=== PATIENT | male | born 1980 | race Caucasian/White ===

== ENCOUNTER 2022-10-13 11:29 | Day surgery (SDC) | payer BC, SELFPAY ==
[2022-10-13] VITALS (11 sets, daily range): BP systolic 138–156; BP diastolic 80–99; PULSE 51–93; RESP 13–16; TEMP 36.5–37.4; O2SAT 95–98; BMI 26.9
[2022-10-13] MEDS: LACTATED RINGERS 1000 ML 1,000 ML 100 ML IV (11:35)
[2022-10-13] MEDS: SODIUM CHLORIDE 0.9 % (FLUSH) 10 ML SYRINGE IVF (11:54)
--- NOTE | 2022-10-13 12:08 | W.ANESCHARGE ---
Anesthesia Charges Start Date/Time Anesthesia Start Date: 10/13/22 Anesthesia Start Time: 12:58 Stop Date/Time Anesthesia Stop Date: 10/13/22 Anesthesia Stop Time: 15:37
[2022-10-13] MEDS: BUPIVACAINE 0.5 % 10 ML VIAL INJECTION (13:33)
--- NOTE | 2022-10-13 15:36 | W.ANESCHARGE ---
Anesthesia Charges Start Date/Time Anesthesia Start Date: 10/13/22 Anesthesia Start Time: 12:58 Stop Date/Time Anesthesia Stop Date: 10/13/22 Anesthesia Stop Time: 15:37
--- NOTE | 2022-10-13 15:38 | PM.GSPRC ---
Operative Note Date of procedure: 10/13/22 Pre-op diagnosis: 1. Acute cholecystitis. Post-op diagnosis: Same Type of Procedure: 1. Laparoscopic cholecystectomy. Indications: 42-year-old male was seen in emergency room yesterday with right upper quadrant pain that started over 12 hours prior to his presentation. Patient's pain was described as constant. He had multiple episodes of vomiting. In the emergency room he was found to have an elevated WBC of 14. His liver function tests were normal with the exception of mildly elevated AST. His bilirubin was normal. A gallbladder ultrasound was obtained that showed cholelithiasis. The gallbladder wall was 2 mm thick with no pericholecystic fluid. The common bile duct was normal in size. On clinical exam patient had tenderness to palpation in the right upper quadrant with equivocal Beasley sign. Patient had a positive Beasley sign during his ultrasound and on examination of the emergency room doctor. Given patient's clinical information and his physical exam, acute cholecystitis was suspected, and laparoscopic cholecystectomy was recommended. The procedure was discussed in detail. The risks associated procedure including infection, bleeding, injury to intra-abdominal organs, and injury to the common bile duct were all discussed with the patient, and he agreed to proceed. Procedure Description: After discussing the risks and benefits of the procedure, the patient signed informed consent.? The operative site was marked and the patient was brought to the operating room and placed on the operating table in supine position.? Care was taken to pad the patient's pressure points.?? The patient was then intubated by anesthesia.?? The operative site was then prepped and draped in the usual sterile fashion.? A time-out was then performed. A 5-mm laparoscopy port was placed in the left upper quadrant guided by a 5-mm laparoscope placed into a translucent trochar.~ Passage through the layers of the abdominal wall was visualized with the laparoscope.~ A pneumoperitoneum was established. A 0-degree 5-mm laparoscope was advanced into the abdomen. The abdomen was briefly surveyed, and no adhesions were noted. A 10-mm port were placed infraumbilically and two more 5 mm ports were placed on the right under direct visualization by laparoscope. The camera was then changed to 10 mm 30-degree scope and placed into the abdomen through the 10 mm port. The left upper quadrant port entrance was examined and no injury to intra-abdominal organs was identified. The gallbladder was identified, and it was taut. I was not able to grasp the gallbladder. A laparoscopic needle was used and the gallbladder was decompressed. 30 mL of bile were aspirated from the gallbladder. The gallbladder was then grasped and retracted cephalad. The omentum was adherent to the gallbladder laterally and to its infundibulum. Those adhesions were taken down with hook cautery. The infundibulum was grasped and retracted laterally, exposing the peritoneum overlying the triangle of Calot. The cystic artery was prominent and was anterior to the cystic duct. The cystic artery was clearly dissected circumferentially and it appeared to be branching of a larger blood vessels. The larger blood vessel was thought to be the right hepatic artery. The cystic artery was dissected circumferentially and its course into the gallbladder was visualized. The cystic artery was then clipped with 2 5 mm clips on the patient's side and a single clip on the specimen side and divided with scissors to improve visualization of the cystic duct. The cystic duct was clearly identified and was dilated near the infundibulum. The cystic duct was diving towards the right hepatic artery and I elected to avoid dissection deep into the yeni hepaticus and stay close to the infundibulum. When the cystic duct was circumferentially dissected, I was not able to place a 5 mm clip to control the cystic duct. 10 mm clip adaptive physical education specialist was then used and the cystic duct was clipped near the infundibulum. Although the 10 mm clip still did not go all the way across the cystic duct. Two clips were placed on the patient's side and a single clip was placed on the specimen side of the cystic duct near the infundibulum and the cystic duct was then divided with scissors between the clips. Small stones came out from the gallbladder because the cystic duct lumen was not completely closed. The cystic duct stump was then controlled with 0-0 PDS endoloop and 0-0 Vicryl and the loop just proximal to the clips. Additional clips were placed on the gallbladder to avoid further spillage of gallstones. The gallbladder was then dissected of the gallbladder fossa with cautery. Moderate to large amount of edema was noted in the gallbladder wall during this dissection. All gallstones that were spilled previously were collected and removed from the abdomen. The gallbladder fossa was examined and any oozing from the gallbladder fossa was controlled with hook cautery. The gallbladder was lawn and thickened. The gallbladder was placed into the and the catch bag. We enlarged the skin and fascial incision of the infraumbilical incision to accommodate removal of the gallbladder. The gallbladder was removed from the abdomen. The fascia of the infraumbilical incision was then closed with a running 0-0 Vicryl suture. Pneumoperitoneum was completely reduced after viewing removal of the trocars under direct vision. The skin was then closed with 4-0 monocryl and steristrips were applied. Instrument, sponge, and needle counts were correct at closure and at the conclusion of the case. The patient was transferred to PACU in stable condition. Findings: Moderate to large amount of inflammation in the gallbladder wall. Dilated cystic duct near the infundibulum controlled with Endoloops. Anesthesia: GETA Surgeon: Summer Núñez MD Estimated blood loss (mL): 10 Specimen: Gallbladder Condition: stable Disposition: PACU
== END 2022-10-13 16:48 | disposition home or self-care (01) ==
PROVIDERS: Visit Provider Surgery
PROC: 0FT44ZZ Resection of Gallbladder, Percutaneous Endoscopic Approach (ICD-10-PCS; CPT 47562; principal; 2022-10-13 12:00)
DX: K80.12 Calculus of gallbladder with acute and chronic cholecystitis without obstruction (principal)
CPT/HCPCS: 47562; 00790; 88304; J0330; J1100; J1170; J2405; J2704; J2710; J3010; J3490; J7120; S0020

== ENCOUNTER 2023-05-09 10:37 | Inpatient (IN) | payer BC, SELFPAY ==
[2023-05-09 10:41] VITALS: BP 130/83; PULSE 96; RESP 20; TEMP 36.6; O2SAT 96; BMI 26.5
--- NOTE | 2023-05-09 11:02 | CRLHL7_ITS ---
For Patients: As a result of the Century Cures Act, medical imaging exams and procedure reports are released immediately into your electronic medical record. You may view this report before your referring provider. If you have questions, please contact your health care provider. INDICATION: Left lower quadrant pain COMPARISON: None. TECHNIQUE: CT of the abdomen and pelvis after the administration of intravenous contrast. Multiplanar axial, coronal, and sagittal reformats were reconstructed. Contrast: 100 mL Isovue 370 intravenously. Oral contrast was not administered. FINDINGS: Lung bases: Normal. Liver: Normal. No masses. Normal vasculature. Gallbladder and biliary tree: Cholecystectomy. No biliary duct dilation. Pancreas: Normal. Spleen: Very small splenic cyst. No further follow-up recommended. Normal size. Adrenal glands: Normal. No nodules. Kidneys and bladder: Normal size and position. No cyst or mass. No calculi. No urinary tract dilation. The urinary bladder is normal. GI: Focal diverticulitis in the sigmoid colon. There is perforation with a moderate to large amount of focal air adjacent to the sigmoid colon. Air is also dissecting into the mesentery and out into the upper abdomen behind the stomach in around the gastroesophageal junction. There is no free intraperitoneal air. No abscess or discrete collection. Other than the area of diverticulitis, the bowel has a normal appearance. The appendix is normal. There are no dilated segments. Vessels: Aorta and major branches, including the mesenteric vessels: Patent. Normal caliber. No atherosclerotic plaques. IVC and tributaries: Normal. Mesenteric and portal veins: Normal. Peritoneum: No free fluid. Lymph nodes: No adenopathy. Pelvis: Physiologic appearance of the reproductive organs. Bones: No fractures. No focal bone lesions. Pectus excavatum with sternal slope. L5-S1 disc degenerative change. Abdominal wall: Normal. IMPRESSION: Perforated sigmoid diverticulitis. Large amount of air tracking through the mesentery into the upper abdomen. No free air. No drainable abscess or collection. Please note that all CT scans at this facility use dose modulation, iterative reconstruction, and/or weight-based dosing when appropriate to reduce radiation dose to as low as reasonably achievable. Dictated by Ciara Tellez MD @ 05/09/2023 12:09:52 PM (Electronically Signed)
--- NOTE | 2023-05-09 11:05 | ED.GENADULT ---
HPI - General Adult General Chief complaint: Abdominal Pain Stated complaint: Abdominal pain Time Seen by Provider: 05/09/23 10:47 History of Present Illness HPI narrative: 42-year-old male who is generally quite healthy, had his gallbladder removed here few months ago. Reports left lower quadrant pain and tenderness touches abdomen for the last couple of days worse since about 330 last night. No dysuria, frequency, hematuria. No bowel or bladder changes. Patient has had no nausea, no chest pain shortness of breath. Reports that it is tender to touch in his left lateral quadrant says he of feels a little swollen as well. No pain in his testicle area or groin. Related Data Home Medications Medication Instructions Recorded Confirmed No Known Home Medications 05/09/23 05/09/23 Allergies Allergy/AdvReac Type Severity Reaction Status Date / Time No Known Drug Allergies Allergy Verified 05/09/23 10:47 Review of Systems Status of ROS: Reports: 6 or more systems reviewed and unremarkable except as noted in History and below PFSH [facility] Social History Smoking Status: Never smoker Do you use any of these nicotine containing products: None Second hand tobacco smoke exposure: No How often do you have a drink containing alcohol: 2-3 times a week How many standard drinks containing alcohol do you have on a typical day: 3 or 4 How often do you have six or more drinks on one occasion: Less than monthly AUDIT-C Alcohol total score: 5 Non-prescribed substance use: denies use service: No Exam Narrative: Exam Narrative: Objective: Vital signs look within normal limits He is alert or x3 Pulse regular Abdomen bowel sounds normoactive Left lower quadrant shows tenderness to palpation just below and lateral to his umbilicus, no palpable masses or herniations. exam is unremarkable he denies any groin pain Extremities without edema neurologic nonfocal Const: Vital Signs, click to edit/add: Vital Signs - 24 hr 05/09/23 10:41 Temperature 97.9 F Pulse Rate [Right Pulse Oximeter] 96 Respiratory Rate 20 Blood Pressure [Ri ght Upper Arm] 130/83 Pulse Oximetry 96 Oxygen Delivery Me thod Room Air Course Vital Signs Vital signs: Initial Vital Signs Temperature 97.9 F 05/09/23 10:41 Temperature Source Temporal Artery Scan 05/09/23 10:41 Pulse Rate 96 05/09/23 10:41 Pulse Rhythm Regular 05/09/23 10:41 Respiratory Rate 20 05/09/23 10:41 Blood Pressure 130/83 05/09/23 10:41 Blood Pressure Mean 98 05/09/23 10:41 Blood Pressure Position Sitting 05/09/23 10:41 Pulse Oximetry 96 05/09/23 10:41 Oxygen Delivery Method Room Air 05/09/23 10:41 Vital Signs Temperature 97.9 F 05/09/23 10:41 Pulse Rate 96 05/09/23 10:41 Respiratory Rate 20 05/09/23 10:41 Blood Pressure 130/83 05/09/23 10:41 Pulse Oximetry 96 05/09/23 10:41 Oxygen Delivery Method Room Air 05/09/23 10:41 Temperature 97.9 F 05/09/23 10:41 Pulse Rate 96 05/09/23 10:41 Respiratory Rate 20 05/09/23 10:41 Blood Pressure 130/83 05/09/23 10:41 Pulse Oximetry 96 05/09/23 10:41 Oxygen Delivery Method Room Air 05/09/23 10:41 Medications Administered Medications: Discontinued Medications Generic Name Dose Route Start Last Admin Trade Name Freq PRN Reason Stop Dose Admin Sodium Chloride 1,000 mls @ 6,000 mls/hr 05/09/23 11:15 05/09/23 11:20 0.9 % Sodium Chloride 1000 Ml IV 05/09/23 11:24 6,000 mls/hr .Q10M JUSTUS Administration Piperacillin Sod/Tazobactam 100 mls @ 200 mls/hr 05/09/23 12:13 05/09/23 12:30 Sod 4.5 gm/ Sodium Chloride IVPB 05/09/23 12:14 200 mls/hr ONCE ONE Administration Morphine Sulfate 4 mg 05/09/23 11:02 05/09/23 11:15 Morphine 4 Mg/Ml Inj IVP 05/09/23 11:03 4 mg ONCE ONE Administration Medical Decision Making [facility] Narrative Medical decision making narrative: [age] year white male with a history of recent gallbladder surgery several months ago, with left lower quadrant pain, patient does have some tenderness and some rebound tenderness consistent with peritonitis. I think ruling out diverticulitis would be appropriate. I do not detect a hernia but this could be checked in a CT scan in this will be ordered. Will do the CT with IV contrast, will check labs, IV fluid, IV pain medicine. Disposition pending clinical status and findings. Addendum 12:17 p.m.: The patient has an elevated white count about 16,000, he is not tachycardic or febrile. His CT scan does show a perforated sigmoid diverticulitis with air within the mesentery. Dr. Hurst kindly will consult on the patient on the hospital floor, and Dr. Jurado kindly will admit the patient to the hospital for the hospitalist team. Will start IV Zosyn per Dr. Keys's recommendation. Patient family comfortable plan. Lab Data Labs: Lab Results 05/09/23 05/09/23 Range/Units 11:20 11:50 WBC 16.29 H (4.50-11.00) K/uL RBC 5.01 (4.30-5.90) m/uL Hgb 14.4 (13.5-17.5) gm/dL Hct 42.6 (37.0-53.0) % MCV 85 (80-100) fL MCH 29 (26-34) pg MCHC 34 (32-36) gm/dL RDW Coeff of Jennifer 13.1 (11.5-15.5) % Plt Count 259 (140-440) K/uL Neut % (Auto) 83.4 H (42.0-72.0) % Lymph % (Auto) 9.3 L (20-44) % [place] % (Auto) 6.7 (0.0-11.0) % Eos % (Auto) 0.3 (0.0-7.0) % Baso % (Auto) 0.2 (0.0-3.0) % Neut # (Auto) 13.60 H (1.7-7.0) K/uL Lymph # (Auto) 1.50 (0.90-2.90) K/uL [place] # (Auto) 1.10 H (0.00-0.90) K/UL Eos # (Auto) 0.00 (0.00-0.50) K/uL Baso # (Auto) 0.00 (0.00-0.30) K/uL Abs Immat Gran (auto) 0.00 (0.00-0.30) K/uL Imm/Tot Granulo (auto) 0.1 % Sodium 137 (135-149) mmol/L Potassium 4.0 (3.6-5.1) mmol/L Chloride 104 (96-114) mmol/L Carbon Dioxide 24 (20-32) mmol/L Anion Gap 9 (7-15) mEq/L BUN 14 (5-24) mg/dL Creatinine 0.9 (0.5-1.5) mg/dL Estimated Creat Clear 125.19 Estimated GFR 108 ml/min Glucose 112 (60-115) mg/dL Calcium 9.5 (8.4-10.6) mg/dL Total Bilirubin 1.4 (0.1-1.5) mg/dL Direct Bilirubin 0.4 (0.0-0.5) mg/dL AST 52 H (12-35) U/L ALT 42 (4-50) U/L Alkaline Phosphatase 91 (40-150) U/L C-Reactive Protein 17.2 H (0.5-1.0) mg/dL Total Protein 7.7 (6.0-8.3) g/dL Albumin 4.6 (3.3-5.0) g/dL Amylase 74 (18-89) U/L Urine Color [place] A (Yellow) Urine Appearance Clear (Clear) Urine pH 5.5 (5.0-8.5) Ur Specific [place] 1.025 (1.000-1.030) Urine Protein 2+ A (Negative) Urine Glucose (UA) Negative (Negative) Urine Ketones 2+ A (Negative) Urine Blood Trace-intact A (Negative) Urine Nitrite Negative (Negative) Urine Bilirubin 1+ A (Negative) Urine Urobilinogen 0.2 (0.2-1.0) Ur Leukocyte Esterase Negative (Negative) Urine RBC 2-5 A (0-2) Urine WBC 2-5 (0-5) Ur Squamous Epith Cells Few (None-Few) Urine Bacteria Few A (None) Discharge Plan Discharge Clinical Impression: Abdominal pain, acute, left lower quadrant
[2023-05-09] MEDS: MORPHINE 4 MG/ML INJ IVP (11:15)
[2023-05-09] MEDS: 0.9 % SODIUM CHLORIDE 1000 ml 1,000 ML 6000 ML IV (11:20)
[2023-05-09 11:30] LABS: Basophils Percent Auto 0.2 % (0.0-3.0); Eosinophils Percent Auto 0.3 % (0.0-7.0); Hematocrit 42.6 % (37.0-53.0); Hemoglobin* 14.4 gm/dL (13.5-17.5); Immature Granulocytes Pct Auto 0.1 %; Lymphocytes Percent Auto 9.3 % (20-44); Mean Corpuscular HGB Conc 34 gm/dL (32-36); Mean Corpuscular Hemoglobin 29 pg (26-34); Mean Corpuscular Volume 85 fL (80-100); Monocytes Percent Auto 6.7 % (0.0-11.0); Neutrophils Percent Auto 83.4 % (42.0-72.0); Platelet Count* 259 K/uL (140-440); RDW Coefficient of Variation % 13.1 % (11.5-15.5); Red Blood Count 5.01 m/uL (4.30-5.90); White Blood Count* 16.29 K/uL (4.50-11.00)
[2023-05-09 11:36] LABS: Slide Review Reflex No
[2023-05-09 12:12] LABS: Chloride* 104 mmol/L (96-114); Sodium* 137 mmol/L (135-149)
[2023-05-09 12:13] LABS: Albumin* 4.6 g/dL (3.3-5.0)
[2023-05-09 12:15] LABS: Amylase* 74 U/L (18-89); Creatinine* 0.9 mg/dL (0.5-1.5); Est. Creatinine Clearance* 125.19; Estimated Glomerular Filt Rate 108 ml/min
[2023-05-09 12:16] LABS: Anion Gap 9 mEq/L (7-15); Aspartate Amino Transferase* 52 U/L (12-35); Bilirubin Direct* 0.4 mg/dL (0.0-0.5); Bilirubin Total* 1.4 mg/dL (0.1-1.5); Blood Urea Nitrogen* 14 mg/dL (5-24); Calcium* 9.5 mg/dL (8.4-10.6); Carbon Dioxide* 24 mmol/L (20-32); Glucose* 112 mg/dL (60-115); Total Protein* 7.7 g/dL (6.0-8.3)
[2023-05-09 12:17] LABS: Alanine Aminotransferase* 42 U/L (4-50); Alkaline Phosphatase* 91 U/L (40-150)
[2023-05-09 12:23] LABS: Appearance Urine Clear (Clear); Bilirubin Urine 1+ (Negative); Blood Urine Trace-intact (Negative); Color Urine Orange (Yellow); Glucose Urine Negative (Negative); Ketones Urine 2+ (Negative); Leukocyte Esterase Urine Negative (Negative); Nitrite Urine Negative (Negative); Protein Urine 2+ (Negative); Specific Gravity Urine 1.025 (1.000-1.030); Urobilinogen Urine 0.2 (0.2-1.0); pH Urine 5.5 (5.0-8.5)
[2023-05-09] MEDS: PIPERACILLIN/TAZOBACTAM 4.5 GM in 0.9 % SODIUM CHLORIDE Mini-bag 100 ML IVPB (12:30)
[2023-05-09 12:31] LABS: C Reactive Protein* 17.2 mg/dL (0.5-1.0)
[2023-05-09 12:34] LABS: Bacteria Urine Few; Squamous Epithelial Cell Urine Few (None-Few)
--- NOTE | 2023-05-09 12:57 | ED.NURSE ---
Pt report given to aretha HOLT
--- NOTE | 2023-05-09 13:23 | P.GSCN_ITS ---
History of Present Illness Consult details Date Seen: 05/09/23 Consult date: 05/09/23 Narrative: The patient is a 42-year-old male who presented to the emergency department today with abdominal pain. He states that at 4:00 a.m. yesterday morning he woke up with left lower quadrant pain. He states that it felt like it was radiating down to his groin. He thought that perhaps it was a hernia because he had been lifting weights a prior days. He states that throughout the day his pain waxed and waned. Advil 200 mg took the pain away completely. He also used Tums to help manage. He states that the pain became slightly worse and that made him come in to be seen. He states that it is worse with movement, particularly getting in and out of the chair. It feels better if he presses on it. He states that Advil will completely take the pain away. His last bowel movement was Wednesday he was going to do a water fast over the weekend but when he developed the pain he stopped doing that. He did eat yesterday. He has had no nausea. He has not had a bowel movement since Wednesday. He states he has bowel movements every other day. They are varied in consistency. He does not take fiber. He has no family history of colon cancer. He has never had a colon oscopy. He has never had anything like this previously. [facility] Surgical History (Updated 05/09/23 @ 13:25 by Paige Callahan MD) S/P cholecystectomy ?Z90.49 - Acquired absence of other specified parts of digestive tract (ICD- 10) Social History (Updated 05/09/23 @ 13:26 by Paige Callahan MD) Narrative: He works for a [employer]. He works a desk job. He does not smoke. He drinks alcohol 3 to 4 times a week Smoking Status: Never smoker Do you use any of these nicotine containing products: None Second hand tobacco smoke exposure: No How often do you have a drink containing alcohol: 2-3 times a week How many standard drinks containing alcohol do you have on a typical day: 3 or 4 How often do you have six or more drinks on one occasion: Less than monthly AUDIT-C Alcohol total score: 5 Non-prescribed substance use: denies use service: No Meds Home Medications and Allergies Home Medications Medication Instructions Recorded Confirmed Type No Known Home Medications 05/09/23 05/09/23 History Allergies Allergy/AdvReac Type Severity Reaction Status Date / Time No Known Drug Allergies Allergy Verified 05/09/23 10:47 Exam Narrative: Exam Narrative: General appearance: Alert, cooperative, and in no distress Eyes: PERRLA, eye lids clear, and sclera white HENT Head: Normocephalic Ears: External ears normal Pulmonary: Clear to auscultation bilaterally Cardiovascular Heart: Regular rate and rhythm Extremities: warm and well perfused Gastrointestinal Abdominal: No obvious scars. Patient is nontender to palpation in the upper abdomen and on the right. In the left lower quadrant. He does have mild tenderness to palpation. He endorses mild rebound, however does not appear to have significant pain on exam. Musculoskeletal: Extremities: Upper: Both upper extremities have normal joint range of motion and intact strength. Lower: Both lower extremities have normal joint range of motion and intact strength. Skin: Normal skin color, texture, and turgor. Neurologic: No focal deficits Psychiatric: Alert, oriented, cooperative, normal affect. Const: Vital Signs, click to edit/add: Vital Signs - 24 hr 05/09/23 10:41 Temperature 97.9 F Pulse Rate [Right Pulse Oximeter] 96 Respiratory Rate 20 Blood Pressure [Ri ght Upper Arm] 130/83 Pulse Oximetry 96 Oxygen Delivery Me thod Room Air Results Labs Labs: Abnormal lab results 05/09/23 05/09/23 Range/Units 11:20 11:50 WBC 16.29 H (4.50-11.00) K/uL Neut % (Auto) 83.4 H (42.0-72.0) % Lymph % (Auto) 9.3 L (20-44) % Neut # (Auto) 13.60 H (1.7-7.0) K/uL [place] # (Auto) 1.10 H (0.00-0.90) K/UL AST 52 H (12-35) U/L C-Reactive Protein 17.2 H (0.5-1.0) mg/dL Urine Color [place] A (Yellow) Urine Protein 2+ A (Negative) Urine Ketones 2+ A (Negative) Urine Blood Trace-intact A (Negative) Urine Bilirubin 1+ A (Negative) Urine RBC 2-5 A (0-2) Urine Bacteria Few A (None) Diabetes panel 05/09/23 Range/Units 11:20 Sodium 137 (135-149) mmol/L Potassium 4.0 (3.6-5.1) mmol/L Chloride 104 (96-114) mmol/L Carbon Dioxide 24 (20-32) mmol/L BUN 14 (5-24) mg/dL Creatinine 0.9 (0.5-1.5) mg/dL Glucose 112 (60-115) mg/dL Calcium 9.5 (8.4-10.6) mg/dL AST 52 H (12-35) U/L ALT 42 (4-50) U/L Alkaline Phosphatase 91 (40-150) U/L Total Protein 7.7 (6.0-8.3) g/dL Albumin 4.6 (3.3-5.0) g/dL Calcium panel 05/09/23 Range/Units 11:20 Calcium 9.5 (8.4-10.6) mg/dL Albumin 4.6 (3.3-5.0) g/dL Pituitary panel 05/09/23 Range/Units 11:20 Sodium 137 (135-149) mmol/L Potassium 4.0 (3.6-5.1) mmol/L Chloride 104 (96-114) mmol/L Carbon Dioxide 24 (20-32) mmol/L BUN 14 (5-24) mg/dL Creatinine 0.9 (0.5-1.5) mg/dL Glucose 112 (60-115) mg/dL Calcium 9.5 (8.4-10.6) mg/dL Adrenal panel 05/09/23 Range/Units 11:20 Sodium 137 (135-149) mmol/L Potassium 4.0 (3.6-5.1) mmol/L Chloride 104 (96-114) mmol/L Carbon Dioxide 24 (20-32) mmol/L BUN 14 (5-24) mg/dL Creatinine 0.9 (0.5-1.5) mg/dL Glucose 112 (60-115) mg/dL Calcium 9.5 (8.4-10.6) mg/dL Total Bilirubin 1.4 (0.1-1.5) mg/dL AST 52 H (12-35) U/L ALT 42 (4-50) U/L Alkaline Phosphatase 91 (40-150) U/L Total Protein 7.7 (6.0-8.3) g/dL Albumin 4.6 (3.3-5.0) g/dL All other labs normal. Imaging Abdomen CT scan report/results: report reviewed and image reviewed Additional studies: CT scan of the abdomen pelvis done today IMPRESSION: Perforated sigmoid diverticulitis. Large amount of air tracking through the mesentery into the upper abdomen. No free air. No drainable abscess or collection. Please note that all CT scans at this facility use dose modulation, iterative reconstruction, and/or weight-based dosing when appropriate to reduce radiation dose to as low as reasonably achievable. Dictated by Ciara Tellez MD @ 05/09/2023 12:09:52 PM Assessment and Plan Assessment and plan (1) Diverticulitis of colon with perforation: Status: Acute Plan The patient is a 42-year-old male with perforated diverticulitis. His CT scan is very remarkable and shows a concerning amount of air, mainly around the sigmoid colon. Based on the pattern (although much of it seems very anterior which is curious) and the patient's fairly unremarkable exam, it does seem to be contained within the pericolonic fat. I had a long discussion with the patient and his about the management of diverticulitis. I told him that the amount of air on his CT scan is concerning; however this does not match his clinical exam. He seems to have minimal pain and has only been taking ibuprofen which has adequately controlled his pain. He is not tachycardic, nor is he febrile. It is possible that if this is indeed a contained perforation and remains so, he could potentially resolve on IV antibiotics and bowel rest. We discussed indications for emergent operation, namely free air resulting in fever, tachycardia and worsening pain. We discussed that this would most likely result in the need for a temporary stoma, either colostomy or ileostomy depending on findings. We discussed that if he avoids surgery this hospitalization, there is still a risk he could develop abscess. Therefore we would continue him on IV antibiotics as an outpatient if he improves clinically. We discussed colonoscopy in 6 weeks and elective colon resection. I have discussed and examined the patient with the hospitalist, Dr. Jurado, who will follow the patient this evening. I have also discussed with nursing staff that if he begins developing fevers, tachycardia or is requiring pain meds, then they should notify me immediately. In the meantime, the patient will be in bowel rest, NPO, IV fluids and antibiotics.
[2023-05-09] MEDS: LACTATED RINGERS 500 ML 500 ML IV (13:50)
--- NOTE | 2023-05-09 14:00 | P.IMHP_ITS ---
Hospitalist- H&P: HPI History of Present Illness Date Seen: 05/09/23 Chief complaint: Abdominal pain Narrative: Pancho Cosby is a 42 year old healthy male admitted through the emergency department with progressive left lower quadrant abdominal pain for 1 and half days. Acutely worse about 3:30 a.m. yesterday. Prior to the onset of this pain he was well. He has not had a bowel movement in the last couple days. No urinary problems. He has had no fever. No vomiting. 10/13/2022 he had an uncomplicated laparoscopic cholecystectomy. No gastrointestinal problems or abdominal pain since that time until yesterday. No problems with anesthesia or other surgical complications. Review of Systems Narrative: Patient reports feeling well other than his abdominal pain. [facility] Medical History (Updated 05/09/23 @ 14:13 by Vini Jurado MD) Seasonal allergies ?J30.2 - Other seasonal allergic rhinitis (ICD-10) Surgical History S/P cholecystectomy ?Z90.49 - Acquired absence of other specified parts of digestive tract (ICD- 10) Social History (Updated 05/09/23 @ 14:10 by Vini Jurado MD) Narrative: Lives in [place]. with 2 kids ages 9 and 11. He works for a [employer] company. He works a desk job. He does not smoke. He drinks alcohol 3 to 4 times a week. No recreational drug use Smoking Status: Never smoker Do you use any of these nicotine containing products: None Second hand tobacco smoke exposure: No How often do you have a drink containing alcohol: 2-3 times a week How many standard drinks containing alcohol do you have on a typical day: 3 or 4 How often do you have six or more drinks on one occasion: Less than monthly AUDIT-C Alcohol total score: 5 Non-prescribed substance use: denies use service: No Meds Home Medications and Allergies Home Medications Medication Instructions Recorded Confirmed Type No Known Home Medications 05/09/23 05/09/23 History Allergies Allergy/AdvReac Type Severity Reaction Status Date / Time No Known Drug Allergies Allergy Verified 05/09/23 10:47 Exam Narrative: Exam Narrative: He is alert and appears in no distress. He gives his own history. Eyes normal. Oropharynx normal. Neck is supple without mass or adenopathy. Respirations are clear to auscultation. Cardiovascular: S1, S2, regular rate and rhythm. No murmur gallop or rub. Abdomen: Bowel sounds active. Abdomen is soft with lower abdominal tenderness. No peritonitis. No mass. External genitalia normal. Extremities normal. Good pulses. No edema. No rash. Const: Vital Signs, click to edit/add: Vital Signs - 24 hr 05/09/23 10:41 Temperature 97.9 F Pulse Rate [Right Pulse Oximeter] 96 Respiratory Rate 20 Blood Pressure [Ri ght Upper Arm] 130/83 Pulse Oximetry 96 Oxygen Delivery Me thod Room Air Documenting provider has reviewed patient's vital signs: yes Hospitalist - H&P: Result Labs Labs: Short CBC 05/09/23 Range/Units 11:20 WBC 16.29 H (4.50-11.00) K/uL Hgb 14.4 (13.5-17.5) gm/dL Hct 42.6 (37.0-53.0) % Plt Count 259 (140-440) K/uL BMP 05/09/23 11:20 Sodium 137 Potassium 4.0 Chloride 104 Carbon Dioxide 24 BUN 14 Creatinine 0.9 Glucose 112 Calcium 9.5 Liver Function 05/09/23 Range/Units 11:20 Total Bilirubin 1.4 (0.1-1.5) mg/dL Direct Bilirubin 0.4 (0.0-0.5) mg/dL AST 52 H (12-35) U/L ALT 42 (4-50) U/L Alkaline Phosphatase 91 (40-150) U/L Albumin 4.6 (3.3-5.0) g/dL Urine 05/09/23 Range/Units 11:50 Urine Color [place] A (Yellow) Urine Appearance Clear (Clear) Urine pH 5.5 (5.0-8.5) Ur Specific [place] 1.025 (1.000-1.030) Urine Protein 2+ A (Negative) Urine Glucose (UA) Negative (Negative) Imaging CT scan - abdomen: Radiologist's impression: INDICATION: Left lower quadrant pain COMPARISON: None. TECHNIQUE: CT of the abdomen and pelvis after the administration of intravenous contrast. Multiplanar axial, coronal, and sagittal reformats were reconstructed. Contrast: 100 mL Isovue 370 intravenously. Oral contrast was not administered. FINDINGS: Lung bases: Normal. Liver: Normal. No masses. Normal vasculature. Gallbladder and biliary tree: Cholecystectomy. No biliary duct dilation. Pancreas: Normal. Spleen: Very small splenic cyst. No further follow-up recommended. Normal size. Adrenal glands: Normal. No nodules. Kidneys and bladder: Normal size and position. No cyst or mass. No calculi. No urinary tract dilation. The urinary bladder is normal. GI: Focal diverticulitis in the sigmoid colon. There is perforation with a moderate to large amount of focal air adjacent to the sigmoid colon. Air is also dissecting into the mesentery and out into the upper abdomen behind the stomach in around the gastroesophageal junction. There is no free intraperitoneal air. No abscess or discrete collection. Other than the area of diverticulitis, the bowel has a normal appearance. The appendix is normal. There are no dilated segments. Vessels: Aorta and major branches, including the mesenteric vessels: Patent. Normal caliber. No atherosclerotic plaques. IVC and tributaries: Normal. Mesenteric and portal veins: Normal. Peritoneum: No free fluid. Lymph nodes: No adenopathy. Pelvis: Physiologic appearance of the reproductive organs. Bones: No fractures. No focal bone lesions. Pectus excavatum with sternal slope. L5-S1 disc degenerative change. Abdominal wall: Normal. IMPRESSION: Perforated sigmoid diverticulitis. Large amount of air tracking through the mesentery into the upper abdomen. No free air. No drainable abscess or collection. Assessment and Plan Assessment and plan (1) Diverticulitis of colon with perforation: Problem comment: Consult with General surgery. If clinical deterioration will need surgery. Initial treatment will be IV Zosyn, IV fluids and pain medication. Status: Acute Plan Admit to the hospital for IV antibiotics, serial exams and monitoring, possible surgery. Total time spent today is 60 minutes in coordination of care and discussing with patient, and surgery a plan of care
[2023-05-09 14:20] VITALS: BP 144/90; PULSE 94; RESP 16; TEMP 37.1; O2SAT 96; BMI 26.5
[2023-05-09] MEDS: LACTATED RINGERS 1000 ML 1,000 ML 150 ML IV ×2 (15:14→21:51)
[2023-05-09 16:19] VITALS: BP 129/83; PULSE 85; RESP 16; TEMP 37.1; O2SAT 98
[2023-05-09] MEDS: MORPHINE 2 MG/ML inj IVP ×2 (17:20→21:52)
[2023-05-09] MEDS: PIPERACILLIN/TAZOBACTAM 3.375 GM in 0.9 % SODIUM CHLORIDE Mini-bag 100 ML IVPB (18:33)
--- NOTE | 2023-05-09 18:57 | PC.NURSE ---
Shift Summary 15-19: Patient pleasant and cooperative. Up independently in room. Vitals stable and WNL. Pain at worst 5/10, managed with PRN medication, see MAR. After medication patient rated pain 1-2/10.
[2023-05-09 19:00] VITALS: BP 150/79; PULSE 96; RESP 16; TEMP 37.1; O2SAT 98
[2023-05-09] MEDS: SODIUM CHLORIDE 0.9 % (FLUSH) 10 ML SYRINGE 5 ML IVF (21:52)
[2023-05-09] MEDS: MELATONIN 3 MG TABLET PO (22:37)
[2023-05-09 22:54] VITALS: PULSE 96; RESP 16
[2023-05-09 23:00] VITALS: BP 131/70; PULSE 103; RESP 16; TEMP 37.3; O2SAT 96
[2023-05-10] VITALS (27 sets, daily range): BP systolic 141–171; BP diastolic 83–101; PULSE 96–119; RESP 14–20; TEMP 37–38.5; O2SAT 92–98
[2023-05-10] MEDS: PIPERACILLIN/TAZOBACTAM 3.375 GM in 0.9 % SODIUM CHLORIDE Mini-bag 100 ML IVPB ×2 (00:22→18:59)
--- NOTE | 2023-05-10 02:58 | PM.EN ---
Chart Event Note Time Seen by Provider: 02:00 Date Seen: 05/10/23 Chart Event Note: Called by RN that 1:00 a.m. vitals showed heart rate of 105, temperature 100.9?. I came to see the patient. I explained that he is exhibiting signs of sepsis, therefore I recommend that we proceed to the OR, again given the amount of air on his CT scan. He was hesitant, saying that his temperature was elevated only because he was covered in blankets and that his heart rate is elevated because he is now anxious about having surgery. I did recheck his temperature per his request. Remains 100.0. His pulse was 124. I explained to him that I did not think waiting any longer to make the decision about the OR was prudent as he has gotten 3 doses of antibiotics, has received IV pain medicine and has only worsened clinically. I think he will likely continue to worsen given again the amount of air on his CT scan. I recommend exploration and sigmoidectomy. I spoke to the patient and his . We discussed risks of surgery including bleeding, infection, injury to other structures. He understands that he will have a stoma which will be considered temporary, the timing of takedown depending on the type of stoma and intraoperative findings. We also discussed his postoperative recovery. He would like to wait until his arrives in 20 minutes before proceeding to the OR. I think this is reasonable. Otherwise we are planning on proceeding to the OR emergently this morning.
[2023-05-10] MEDS: LACTATED RINGERS 1000 ML 1,000 ML 150 ML IV ×2 (05:05→06:20)
--- NOTE | 2023-05-10 05:54 | PC.NURSE ---
End of shift [id number]: Pt A&O x4 and ambulates independently in his room. PIV in right AC infusing LR @ 150 mL/hr. IV zosyn given q6H per JUL. Pt tolerating PO ice chips without nausea. LLQ tenderness with change of position but gets relief with applying pressure. Pt rates his pain 3/10 and receives PRN IV 4mg morphine with adequate relief. Pt has been NPO with ice chips. Denies any dizziness or lightheadedness. Pt was VSS and afebrile beginning of shift but he became more tachycardic and febrile as the night went on. At 2300 VS; HR was 103 and PO temp 99.1. Strategic Accounts Manager re-checked again @ 0000 and HR up to [address] Callahan was contacted per MD orders and it was decided to bring patient into the OR for emergency sigmoid colon resection. Pt off unit to OR @ 0310. , Genia located in patient room. ?
--- NOTE | 2023-05-10 06:58 | W.PM.NB ---
Nerve Block Nerve Block Type of block requested by surgeon for post-operative analgesia: TAP Side: bilateral Time out performed: Yes Verification of patient name: Yes Verification of date of : Yes Site marking: site marked Name of person performing procedure: Panda Eckert Continuous monitoring Was continuous monitoring of O2 sat, B/P, monitoring and evaluation advisor, recorded every 15 minutes?: Yes Procedure Checklist: sterile prep, needles and gloves Ultrasound guided. Images saved: Yes Medications given in 5ml increments after negative aspiration: Marcaine %: 0.25 mL: 30 Needle gauge: 20 and Exparel mL: 10 Needle gauge: 20 Patient tolerated procedure well: Yes
--- NOTE | 2023-05-10 07:18 | SUR.OPER ---
Called placed to [facility], , update given, closing in progress. Dr. Callahan to call when complete.
--- NOTE | 2023-05-10 08:34 | P.GSOP_ITS ---
Operative Note Date of procedure: 05/10/23 Pre-op diagnosis: Perforated sigmoid diverticulitis Post-op diagnosis: Perforated sigmoid diverticulitis with peritonitis Type of Procedure: 1. Sigmoidectomy with primary anastomosis 2. Complete Mobilization of the splenic flexure 3. Rigid proctoscopy 4. Diverting loop ileostomy Indications: The patient is a 42-year-old male who presented to the emergency department with left lower quadrant pain. Workup showed perforation of diverticulitis in the proximal sigmoid. He had a large amount of air which appeared to be tracking retroperitoneally and possibly contained within the pericolonic tissue. He had an elevated white blood cell count, however he was not tachycardic, nor was he febrile. On exam, he had minimal pain to palpation. Given this clinical picture, it was felt that possibly the air was contained within the pericolic fat and not freely perforated into the abdomen. I explained to the patient that I was concerned about the amount of air noted, however if he continued to have minimal pain, and was not tachycardic or febrile, we could try observation with IV antibiotics and bowel rest. However the plan was if anything changed then we would proceed to the OR for emergency laparotomy. The patient had been doing well all evening, however around 1:00 a.m. he developed a fever to 100.7. He was noted to also be tachycardic from 105-125. He did not feel that his pain had worsened, however given these findings in light of his CT scan, I recommended proceeding to the OR emergently. Procedure Description: After discussing the risks and benefits of the procedure, the patient signed informed consent.? The operative site was marked and the patient was brought to the operating room and placed on the operating table in supine position.? Care was taken to pad the patient's pressure points.?? The patient was then in tubated by anesthesia.?Anesthesia then performed a tap block. Please see their note for details. SCDs and a Goncalves were placed. The patient was then placed in lithotomy position. The abdomen was then prepped and draped in the usual sterile fashion. A time-out was then performed. I began by making an incision in the midline from just above the umbilicus to the lower abdomen. Dissection was taken down to the subcutaneous fat using cautery. The fascia was incised followed by the peritoneum. The peritoneal cavity was then entered. The fascia was then divided along the length of the incision. An Sachin wound protector was brought into the field and placed into the wound. An Omni retractor was then brought in and used to provide retraction. I 1st began by examining the abdomen. There was an inflammatory mass of the left lower quadrant. There appeared to be small bowel adherent to this with fibrinous exudate. There was purulent material noted in the pelvis. There was small bowel which was adherent to the sigmoid colon and inflammatory mass in the left upper pelvis. This was bluntly dissected using finger dissection. The perforation in the sigmoid was noted here just under the small bowel. I began by incising the lateral pelvic peritoneal reflection of the sigmoid colon. This was done with cautery. The area of perforation in inflammation was noted to be in the proximal sigmoid/distal descending colon. There was a large amount of edema in the lateral mesentery of the sigmoid. The ureter was identified as I reflected the sigmoid medially. Care was taken to avoid this. I took this dissection as far cranially as possible, mobilizing the descending colon laterally. Once I had mobilized the lateral colon as far as I could reach, I turned my attention back down to the inflammatory mass. Now that it was mobilized, I elected to divide the colon proximally. Using cautery, I dissected away the pericolonic fat. A mesenteric window was created and through this I passed a blue load ARNIE stapler. The distal descending colon was divided just proximal to the area perforation I then divided the mesentery using LigaSure. This was taken down to the rectum. Small bleeding vessels were oversewn with stick ties resulting in excellent hemostasis. As the division of the mesentery was done, the ureter was in view and was avoided. Once I reach the mesenteric fat at the rectum, I dissected the blood vessels in the mesentery with a right angle and divided these with silk ties. Once the superior rectum was cleared, I used a contour stapler to divide the rectum. The staple line was inspected for bleeding. There was a small area of bleeding on the lateral aspect. This was oversewn with 3-0 silk. The specimen was then marked with a stitch proximally and sent to pathology. I then examined the distal end of the colon. This did not extend into the pelvis. Therefore, I extended my incision superiorly for approximately 3 cm. The retractors were replaced and this allowed me to mobilize further descending colon. However, this disease and not allow visualization removed was a she the splenic flexure. I extended the incision for another 3 cm, and was able to then take down the splenic flexure entirely, using a combination of LigaSure as well as cautery. At 1 point the cautery was close to the wall of the descending colon in a focal area. There was no obvious burn jaylyn, however I did over-sew this with 3-0 silk suture in Lembert fashion. Once this was done the distal colon was examined. It was still somewhat tethered laterally to the retroperitoneum. These filmy adhesions were taken down with cautery. I then divided the mesentery distally near the root which provided excellent mobilization of the distal colon. This fell easily now over the pelvic brim. The colon appeared well perfused. I now began my anastomosis. Using cautery, I removed the fat at the distal end of the colon. I then removed the staple line using a knife. A 31 EEA stapler anvil was obtained and placed into the open end of the colon. A 2-0 Prolene suture was then used to create a pursestring. This was snugged up around the anvil. I then cleared a small area of fat off of the distal colon, and placed a 2nd 2 0 Vicryl pursestring suture. At this point the pursestring was snugged nicely around the anvil. I placed this back down in the pelvis. I then performed a proctoscopy. The patient did have a small amount of firm stool in the rectum. This was extracted digitally. I was able to use sizers and passed them easily to the rectal stump. Once this was done I passed the stapler of the 31 mm EEA stapler until it reached the staple line. The trocar was deployed through the staple line in the center. I did this by placing a sterile glove and sleeve on my left hand to help guide the stapler in the appropriate location. Once this was done my talent assistant placed the anvil onto the trocar. I then closed the stapler. After waiting 30 seconds, I fired the stapler, creating the anastomosis. The stapler was then removed. Two anastomotic rings were removed intact. I then performed a proctoscopy. There was no bleeding noted from the staple line. The staple line appeared to be at approximately 18 cm. I then performed a leak test. This was negative. Once this was done, I then scrubbed back into the case and examined the abdomen. Hemostasis appeared excellent. I irrigated the abdomen with 1 L of warm saline. There was no significant purulence other than what had initially been found suctioned out of the pelvis. I did place a piece of Surgicel in the left upper quadrant over a raw area of the retroperitoneum - after cauterizing a small vessel that was bleeding. Once this was done, I rechecked the anastomosis. The proximal colon fell easily into the pelvis without tension. The mesentery was without bleeding. I then identified a healthy piece of ileum approximately 30 cm proximal to the ileocecal valve. This came up very easily to the abdominal wall. I then created a stoma trephine just below the umbilicus on the right. This was done with cautery, incising the skin and then dividing the subcutaneous fat. The anterior rectus fascia was incised in a cruciate manner. The rectus muscle fibers were spread and the posterior fascia was then incised as well. I was able to pass 2 fingers through and through this I was able to deliver the loop of ileum, with care to ensure it was not twisted. Once this was done, the fascia was closed with looped 0 Maxon suture in a running fashion. I then closed the skin around the umbilicus with 3-0 Vicryl dermal and 4-0 Monocryl running subcuticular suture, to better facilitate pouching of the stoma. I left the inferior and superior aspect of the wound open to heal by secondary intention. Sterile dressings were then applied and attention was turned to stoma maturation. A transverse incision was made on the ileum using cautery. Then using 3-0 Vicryl, I matured the ileostomy in a Elham fashion. I placed additional sutures to create the mucocutaneous anastomosis circumferentially. Once this was done I was able to pass my finger easily through the fascia. A stoma appliance was then placed. ? The patient was then woken and transported to the recovery area in stable condition. ? The patient tolerated the procedure well. Findings: 1. Perforated proximal sigmoid diverticulitis with a large amount of mesenteric edema and purulent fluid in the pelvis 2. End-to-end colorectal anastomosis created at 18 cm. Negative leak test, anastomotic rings intact. Anesthesia: GETA Surgeon: Paige Callahan MD Estimated blood loss (mL): 50 Additional Specimen Information: 1. Sigmoid colon, stitch proximal, with additional proximal margin and anastomotic rings Condition: stable Disposition: PACU
--- NOTE | 2023-05-10 08:49 | W.ANESCHARGE ---
Anesthesia Charges Start Date/Time Anesthesia Start Date: 05/10/23 Anesthesia Start Time: 03:11 Stop Date/Time Anesthesia Stop Date: 05/10/23 Anesthesia Stop Time: 08:43 Summary Emergency: ELECTROCARDIOGRAPHIC TECHNICIAN
[2023-05-10] MEDS: fentaNYL 100 MCG/2 ML inj 50 MCG IVP ×2 (09:00→09:10)
[2023-05-10] MEDS: HYDROmorphone 0.5 mg/0.5 ml inj IVP ×4 (09:55→20:13)
[2023-05-10 10:04] LABS: Basophils Percent Auto 0.1 % (0.0-3.0); Hematocrit 41.2 % (37.0-53.0); Hemoglobin* 13.7 gm/dL (13.5-17.5); Immature Granulocytes Pct Auto 0.1 %; Lymphocytes Percent Auto 3.2 % (20-44); Mean Corpuscular HGB Conc 33 gm/dL (32-36); Mean Corpuscular Hemoglobin 29 pg (26-34); Mean Corpuscular Volume 86 fL (80-100); Neutrophils Percent Auto 90.6 % (42.0-72.0); Platelet Count* 281 K/uL (140-440); RDW Coefficient of Variation % 13.2 % (11.5-15.5); Red Blood Count 4.77 m/uL (4.30-5.90); White Blood Count* 16.79 K/uL (4.50-11.00)
[2023-05-10 10:05] LABS: Slide Review Reflex No
[2023-05-10] MEDS: LACTATED RINGERS 1000 ML 1,000 ML 125 ML IV ×2 (10:05→19:01)
[2023-05-10 10:17] LABS: Chloride* 107 mmol/L (96-114)
[2023-05-10 10:18] LABS: Potassium* 4.3 mmol/L (3.6-5.1); Sodium* 135 mmol/L (135-149)
[2023-05-10 10:20] LABS: Creatinine* 0.8 mg/dL (0.5-1.5); Est. Creatinine Clearance* 140.83; Estimated Glomerular Filt Rate 112 ml/min
[2023-05-10 10:21] LABS: Anion Gap 13 mEq/L (7-15); Blood Urea Nitrogen* 13 mg/dL (5-24); Calcium* 8.2 mg/dL (8.4-10.6); Carbon Dioxide* 15 mmol/L (20-32); Glucose* 142 mg/dL (60-115)
[2023-05-10 10:38] LABS: C Reactive Protein* 16.6 mg/dL (0.5-1.0)
--- NOTE | 2023-05-10 10:47 | PM.IMPN1 ---
Progress Note: A&P Assessment and plan (1) Diverticulitis of colon with perforation: Problem details: Partial colectomy morning for sepsis secondary to perforated diverticulitis. Colostomy in place. Continue IV Zosyn, IV fluids, clear liquid diet. Status: Acute (2) Sepsis: Problem details: Secondary to diverticulitis, now improving after surgical removal of affected part of colon. Status: Acute Subjective Time Seen by Provider: 10:35 Date Seen: 05/10/23 Interval history: Pancho is still sleepy after surgery. His is in the room with him. Pancho states he is having some pain, but mostly just wants to sleep. Exam Narrative: Exam Narrative: General: [No acute distress.] Sleeping, arousable, oriented. [No pallor.] [No jaundice.] Oropharynx: Clear. Mucous membranes [moist]. Cardiovascular: [Regular rate and rhythm]. [No murmurs, gallops, or rubs]. Respiratory: [Clear to auscultation bilaterally. No wheezes or crackles]. Abdomen: Freshly surgical abdomen with a colostomy in place, ostomy is pink and viable. Bandages are clean, dry, and intact. Extremities: [No] pedal edema. Const: Vital Signs, click to edit/add: Vital Signs - 24 hr 05/09/23 14:20 05/09/23 16:19 05/09/23 19:00 Temperature 98.8 F 98.7 F 98.7 F Pulse Rate Pulse Rate [Apical ] 94 85 Pulse Rate [Pulse Oximeter] 96 Respiratory Rate 16 16 16 Blood Pressure Blood Pressure [Ri t Arm] 144/90 H 129/83 150/79 H Pulse Oximetry 96 98 98 Oxygen Delivery Me thod Room Air Room Air Room Air Oxygen Flow Rate 05/09/23 22:54 05/09/23 23:00 05/10/23 01:14 Temperature 99.1 F 100.9 F H Pulse Rate Pulse Rate [Apical ] Pulse Rate [Pulse Oximeter] 96 103 H 105 H Respiratory Rate 16 16 Blood Pressure Blood Pressure [Ri ght Arm] 131/70 Pulse Oximetry 96 Oxygen Delivery Me thod Room Air Oxygen Flow Rate 05/10/23 08:45 05/10/23 08:50 05/10/23 08:55 Temperature 99 F Pulse Rate 108 H 105 H 108 H Pulse Rate [Apical ] Pulse Rate [Pulse Oximeter] Respiratory Rate 14 14 14 Blood Pressure 148/91 H 146/88 H 147/88 H Blood Pressure [Ri ght Arm] Pulse Oximetry 94 94 94 Oxygen Delivery Me thod Room Air Room Air Room Air Oxygen Flow Rate 05/10/23 09:00 05/10/23 09:05 05/10/23 09:10 Temperature Pulse Rate 100 100 101 H Pulse Rate [Apical ] Pulse Rate [Pulse Oximeter] Respiratory Rate 14 14 14 Blood Pressure 147/90 H 144/91 H 146/89 H Blood Pressure [Ri ght Arm] Pulse Oximetry 92 97 96 Oxygen Delivery Me thod Room Air Nasal Cannula Nasal Cannula Oxygen Flow Rate 3 3 05/10/23 09:15 05/10/23 09:20 Temperature 98.6 F Pulse Rate 98 98 Pulse Rate [Apical ] Pulse Rate [Pulse Oximeter] Respiratory Rate 14 14 Blood Pressure 146/90 H 141/83 H Blood Pressure [Ri ght Arm] Pulse Oximetry 95 97 Oxygen Delivery Me thod Nasal Cannula Nasal Cannula Oxygen Flow Rate 3 3 Documenting provider has reviewed patient's vital signs: yes Labs Labs: Laboratory Results - last 24 hr 05/09/23 05/09/23 05/10/23 11:20 11:50 09:55 WBC 16.29 H 16.79 H RBC 5.01 4.77 Hgb 14.4 13.7 Hct 42.6 41.2 MCV 85 86 MCH 29 29 MCHC 34 33 RDW Coeff of Jennifer 13.1 13.2 Plt Count 259 281 Neut % (Auto) 83.4 H 90.6 H Lymph % (Auto) 9.3 L 3.2 L [place] % (Auto) 6.7 6.0 Eos % (Auto) 0.3 0.0 Baso % (Auto) 0.2 0.1 Neut # (Auto) 13.60 H 15.20 H Lymph # (Auto) 1.50 0.50 L [place] # (Auto) 1.10 H 1.00 H Eos # (Auto) 0.00 0.00 Baso # (Auto) 0.00 0.00 Abs Immat Gran (auto) 0.00 0.00 Imm/Tot Granulo (auto) 0.1 0.1 Sodium 137 135 Potassium 4.0 4.3 Chloride 104 107 Carbon Dioxide 24 15 L Anion Gap 9 13 BUN 14 13 Creatinine 0.9 0.8 Estimated Creat Clear 125.19 140.83 Estimated GFR 108 112 Glucose 112 142 H Calcium 9.5 8.2 L Total Bilirubin 1.4 Direct Bilirubin 0.4 AST 52 H ALT 42 Alkaline Phosphatase 91 C-Reactive Protein 17.2 H 16.6 H Total Protein 7.7 Albumin 4.6 Amylase 74 Urine Color [place] A Urine Appearance Clear Urine pH 5.5 Ur Specific [place] 1.025 Urine Protein 2+ A Urine Glucose (UA) Negative Urine Ketones 2+ A Urine Blood Trace-intact A Urine Nitrite Negative Urine Bilirubin 1+ A Urine Urobilinogen 0.2 Ur Leukocyte Esterase Negative Urine RBC 2-5 A Urine WBC 2-5 Ur Squamous Epith Cells Few Urine Bacteria Few A
[2023-05-10] MEDS: HYDROCODONE-ACETAMIN 5-325 MG 1 TAB PO ×2 (13:01→17:33)
--- NOTE | 2023-05-10 14:35 | PC.NURSE ---
Pt returned s/p perforated sigmoid diverticulum repair performed by Dr. Callahan in his hospital bed @ 0935 am to room 261. Please see initial assessment from PACU and frequent post op VS. Genia present and vigilant at bedside. Pt's tele indicates sinus tachycardia, bp's elevated with pain, cough & deep breathe. Dr. Callahan aware of pt's temp 100.6 and tachycardia. Encourage activity, dangle, recliner and walk this evening. IV Zosyn infused. Continue Plan of care. Report will be provided to oncoming shift RN. Goncalves to be d/c'ed when pt is up ambulating this afternoon. Urinal will be used at bedside.
--- NOTE | 2023-05-10 15:23 | PC.NURSE ---
Pt had RN check his urrutia catheter, it remains patent and leg strap applied. Pt worried about getting up d/to his pain level increasing with movement. Reassurance provided to pt and that he will be premedicated prior to moving into recliner and 2 people will assist with this transfer. Anna Munoz RN updated on pt's request.
[2023-05-10] MEDS: CALCIUM CARBONATE 500 MG CHEW PO ×2 (16:17→19:47)
[2023-05-10] MEDS: ACETAMINOPHEN SUSPENSION 1 BOTTLE 650 MG PO (21:15)
--- NOTE | 2023-05-10 22:17 | PC.NURSE ---
End of Shift: Patient pleasant and cooperative. Patient vitally stable, lungs clear, BS WNL, IV running LR at 125. Patient rates pain at most 4-5/10, [place] 2 tabs given once, 0.5 mg of dilauded given once, then 1mg of dilauded given once. Patient given liquid tylenol for fever as swallowing pills causes abdominal pain. Patient has waves of abdominal spasm where patient yells, hospitalist assessed patients abdomen and pain, patient had no pain with palpation to the abdomen, pain medication changes were made. Attempt was mad to get to side of bed and unsuccessful, patient experiences spasm where he then has to lie flat. Right abdominal ostomy with serosanguineous fluid, Mepilex x2 at medial abdomen C/D/I. Patient urrutia intact and draining, straw urine. Patient is not taking in much fluids but did consume raspberry ice. Taking deep breaths or having to hold breath to sip from straw causes pain, patient has fear of the spasms.
[2023-05-10] MEDS: OXYCODONE 1 MG/ML ORAL SOLN PO (23:59)
[2023-05-11] VITALS (11 sets, daily range): BP systolic 136–164; BP diastolic 82–104; PULSE 97–120; RESP 16–22; TEMP 36.8–38.9; O2SAT 92–95
[2023-05-11] MEDS: PIPERACILLIN/TAZOBACTAM 3.375 GM in 0.9 % SODIUM CHLORIDE Mini-bag 100 ML IVPB ×4 (01:17→18:39)
[2023-05-11] MEDS: LACTATED RINGERS 1000 ML 1,000 ML 125 ML IV ×3 (04:49→21:48)
[2023-05-11] MEDS: OXYCODONE 1 MG/ML ORAL SOLN PO ×7 (04:52→21:42)
[2023-05-11 06:38] LABS: Basophils Absolute Auto 0.02 K/uL (0.00-0.30); Basophils Percent Auto 0.2 % (0.0-3.0); Eosinophils Absolute Auto 0.03 K/uL (0.00-0.50); Eosinophils Percent Auto 0.3 % (0.0-7.0); Hematocrit 37.4 % (37.0-53.0); Hemoglobin* 12.5 gm/dL (13.5-17.5); Immature Granulocytes Abs Auto 0.01 K/uL (0.00-0.30); Immature Granulocytes Pct Auto 0.1 %; Lymphocytes Percent Auto 8.7 % (20-44); Mean Corpuscular HGB Conc 33 gm/dL (32-36); Mean Corpuscular Hemoglobin 29 pg (26-34); Mean Corpuscular Volume 86 fL (80-100); Monocytes Percent Auto 7.5 % (0.0-11.0); Neutrophils Percent Auto 83.2 % (42.0-72.0); Platelet Count* 268 K/uL (140-440); Red Blood Count 4.36 m/uL (4.30-5.90); White Blood Count* 10.85 K/uL (4.50-11.00)
[2023-05-11 06:39] LABS: Slide Review Reflex No
[2023-05-11 07:00] LABS: Chloride* 101 mmol/L (96-114); Potassium* 4.2 mmol/L (3.6-5.1); Sodium* 133 mmol/L (135-149)
[2023-05-11 07:02] LABS: Creatinine* 0.7 mg/dL (0.5-1.5); Est. Creatinine Clearance* 160.95; Estimated Glomerular Filt Rate 117 ml/min
[2023-05-11 07:03] LABS: Anion Gap 6 mEq/L (7-15); Blood Urea Nitrogen* 6 mg/dL (5-24); Carbon Dioxide* 26 mmol/L (20-32); Glucose* 120 mg/dL (60-115)
[2023-05-11 07:04] LABS: Calcium* 8.4 mg/dL (8.4-10.6)
[2023-05-11 07:18] LABS: C Reactive Protein* 24.8 mg/dL (0.5-1.0)
[2023-05-11] MEDS: ACETAMINOPHEN SUSPENSION 1 BOTTLE 650 MG PO ×2 (08:39→19:45)
[2023-05-11] MEDS: HYDROmorphone 0.5 mg/0.5 ml inj IVP (08:59)
--- NOTE | 2023-05-11 09:10 | NUTR.NU ---
RDN with MD consult for ileostomy. Patient admitted with diverticulitis with perforation s/p resection with ileostomy placement on 05/10/2023. Per IDT, patient is experiencing pain. Current diet order is Clear Liquids. RDN will not attempt to visit with patient at this time due to pain and diet order. Once diet order advances to Full Liquids, RDN will attempt to visit. Will continue to monitor.
[2023-05-11] MEDS: KETOROLAC 15 MG/ML inj IVP ×2 (09:40→21:42)
--- NOTE | 2023-05-11 10:51 | PM.GSPN ---
Subjective Subjective Date Seen: 05/11/23 Interval history: Pancho did okay overnight. Fever curve is improving. Mildly tachycardic though this is also improving. His pain is a 4/10 with pain medication. Goncalves was removed this morning. He has been very anxious about getting out of bed. Describes spasms which occur which improved with him applying pressure to his abdomen. Exam Narrative: Exam Narrative: General: No acute distress CV mildly tachycardic Respiratory: Breathing nonlabored on room air Abdomen: Incisions are clean and dry. Dressing change today at bedside. Patient tolerated well. No erythema. Stoma is pink and proud. Bowel sweat noted in stoma bag. Const: Vital Signs, click to edit/add: Vital Signs - 24 hr 05/10/23 11:00 05/10/23 11:30 05/10/23 12:00 Temperature Pulse Rate Pulse Rate [Pulse Oximeter] 104 H 98 100 Respiratory Rate 18 18 18 Blood Pressure [Le ft Arm] 152/94 H 146/90 H 163/93 H Pulse Oximetry 97 98 97 Oxygen Delivery Me thod Nasal Cannula Nasal Cannula Room Air Oxygen Flow Rate 3 2 05/10/23 13:00 05/10/23 13:32 05/10/23 13:41 Temperature 100.2 F H 98.7 F Pulse Rate 111 H Pulse Rate [Pulse Oximeter] 119 H Respiratory Rate Blood Pressure [Le ft Arm] 171/101 H Pulse Oximetry Oxygen Delivery Me thod Nasal Cannula Oxygen Flow Rate 2 05/10/23 15:00 05/10/23 15:30 05/10/23 19:06 Temperature 99.0 F 99.1 F Pulse Rate Pulse Rate [Pulse Oximeter] 107 H 108 H Respiratory Rate 20 20 20 Blood Pressure [Le ft Arm] 156/86 H 165/96 H Pulse Oximetry 94 94 Oxygen Delivery Me thod Room Air Room Air Oxygen Flow Rate 05/10/23 21:15 05/10/23 21:37 05/10/23 22:59 Temperature 101.3 F H 99.7 F H Pulse Rate 106 H Pulse Rate [Pulse Oximeter] Respiratory Rate Blood Pressure [Le ft Arm] Pulse Oximetry Oxygen Delivery Me thod Oxygen Flow Rate 05/10/23 22:59 05/11/23 00:00 05/11/23 00:00 Temperature 99.7 F H 99.6 F Pulse Rate Pulse Rate [Pulse Oximeter] 111 H 111 H Respiratory Rate 22 22 Blood Pressure [Le ft Arm] 164/104 H Pulse Oximetry 94 Oxygen Delivery Me thod Room Air Oxygen Flow Rate 05/11/23 03:28 05/11/23 04:50 05/11/23 07:00 Temperature 99.0 F Pulse Rate 97 104 H Pulse Rate [Pulse Oximeter] 105 H Respiratory Rate 18 Blood Pressure [Le ft Arm] 162/97 H Pulse Oximetry 92 Oxygen Delivery Me thod Room Air Oxygen Flow Rate Labs/Imaging Labs Labs: White blood cell count is normal. CRP is up to 24 from 16. Hemoglobin is 12 which is an appropriate postoperative drop. Acidosis has resolved from yesterday. Progress Note: A&P Assessment and plan (1) Sepsis: Problem details: Secondary to diverticulitis, now improving after surgical removal of affected part of colon. Status: Acute (2) Diverticulitis of colon with perforation: Problem details: Partial colectomy morning for sepsis secondary to perforated diverticulitis. Colostomy in place. Continue IV Zosyn, IV fluids, clear liquid diet. Status: Acute Plan The patient is a 42-year-old male who is postop day 1 after her laparotomy, sigmoidectomy with primary anastomosis and loop ileostomy. Overall he looks good today. I assured him that his postoperative course so far has been typical. He does have a fair amount of anxiety which I think is mainly anticipatory as he will have spasms and tense up when he anticipates something is going to be done to him. We discussed breathing exercises to help with this. -I a have added Toradol since his hemoglobin was stable. This will help with baseline pain control. -continue Zosyn -recheck labs tomorrow -encouraged him to use incentive spirometry. Have also added Lovenox for DVT prophylaxis. -have ordered a wound nurse stoma consult for Education as well as nutrition consult for stoma education -hospitalist ordered PT today to help him as he is anxious about getting out of bed. I encouraged him that getting out of bed will help him recover faster, however we will make sure that his pain is adequately controlled. His has asked about some fast acting anxiety medication. Certainly this may help, however this may end up causing drowsiness as well as interacting with opioid so I would prefer to avoid it if possible. Otherwise, I did reassure them both that he is doing well overall. He is motivated to try to get out of bed today.
--- NOTE | 2023-05-11 12:23 | PM.IMPN1 ---
Progress Note: A&P Assessment and plan (1) Diverticulitis of colon with perforation: Problem details: Partial colectomy morning for sepsis secondary to perforated diverticulitis. Colostomy in place. Continue IV Zosyn, IV fluids, clear liquid diet. Pain control with IV and/or po narcotics, toradol. Encouraged sitting up in chair, ambulation, IS. Anxiety about pain: recommended breathing techniques and I have added prn hydroxyzine. VTE prophylaxis with SCDs and low dose enoxaparin. Status: Acute (2) Sepsis: Problem details: Secondary to diverticulitis, now improving after surgical removal of affected part of colon. Status: Acute Subjective Time Seen by Provider: 10:22 Date Seen: 05/11/23 Interval history: Vishnu is feeling better now sitting up in the chair. He had pain and some anxiety about pain overnight. Koko from PT helped get Vishnu into the chair this morning and Vishnu and his were impressed by how well it went. We discussed breathing techniques for anxiety. Exam Narrative: Exam Narrative: General: No acute distress. Sitting up in a chair, awake, alert, oriented. No pallor. No jaundice. Oropharynx: Clear. Mucous membranes moist. Cardiovascular: Regular rate and rhythm. No murmurs, gallops, or rubs. Respiratory: Clear to auscultation bilaterally. No wheezes or crackles. Abdomen: Ostomy is pink and viable. Bandages are clean, dry, and intact. Extremities: No pedal edema. Const: Vital Signs, click to edit/add: Vital Signs - 24 hr 05/10/23 13:00 05/10/23 13:32 05/10/23 13:41 Temperature 100.2 F H 98.7 F Pulse Rate 111 H Pulse Rate [Pulse Oximeter] 119 H Respiratory Rate Blood Pressure [Le ft Arm] 171/101 H Pulse Oximetry Oxygen Delivery Me thod Nasal Cannula Oxygen Flow Rate 2 05/10/23 15:00 05/10/23 15:30 05/10/23 19:06 Temperature 99.0 F 99.1 F Pulse Rate Pulse Rate [Pulse Oximeter] 107 H 108 H Respiratory Rate 20 20 20 Blood Pressure [Le ft Arm] 156/86 H 165/96 H Pulse Oximetry 94 94 Oxygen Delivery Me thod Room Air Room Air Oxygen Flow Rate 05/10/23 21:15 05/10/23 21:37 05/10/23 22:59 Temperature 101.3 F H 99.7 F H Pulse Rate 106 H Pulse Rate [Pulse Oximeter] Respiratory Rate Blood Pressure [Le ft Arm] Pulse Oximetry Oxygen Delivery Me thod Oxygen Flow Rate 05/10/23 22:59 05/11/23 00:00 05/11/23 00:00 Temperature 99.7 F H 99.6 F Pulse Rate Pulse Rate [Pulse Oximeter] 111 H 111 H Respiratory Rate 22 22 Blood Pressure [Le ft Arm] 164/104 H Pulse Oximetry 94 Oxygen Delivery Me thod Room Air Oxygen Flow Rate 05/11/23 03:28 05/11/23 04:50 05/11/23 07:00 Temperature 99.0 F Pulse Rate 97 104 H Pulse Rate [Pulse Oximeter] 105 H Respiratory Rate 18 Blood Pressure [Le ft Arm] 162/97 H Pulse Oximetry 92 Oxygen Delivery Me thod Room Air Oxygen Flow Rate 05/11/23 08:00 Temperature Pulse Rate Pulse Rate [Pulse Oximeter] Respiratory Rate Blood Pressure [Le ft Arm] Pulse Oximetry 94 Oxygen Delivery Me thod Oxygen Flow Rate Documenting provider has reviewed patient's vital signs: yes Labs Labs: Laboratory Results - last 24 hr 05/11/23 06:28 WBC 10.85 RBC 4.36 Hgb 12.5 L Hct 37.4 MCV 86 MCH 29 MCHC 33 RDW Coeff of Jennifer 13.0 Plt Count 268 Neut % (Auto) 83.2 H Lymph % (Auto) 8.7 L [place] % (Auto) 7.5 Eos % (Auto) 0.3 Baso % (Auto) 0.2 Neut # (Auto) 9.00 H Lymph # (Auto) 0.90 [place] # (Auto) 0.80 Eos # (Auto) 0.03 Baso # (Auto) 0.02 Abs Immat Gran (auto) 0.01 Imm/Tot Granulo (auto) 0.1 Sodium 133 L Potassium 4.2 Chloride 101 Carbon Dioxide 26 Anion Gap 6 L BUN 6 Creatinine 0.7 Estimated Creat Clear 160.95 Estimated GFR 117 Glucose 120 H Calcium 8.4 C-Reactive Protein 24.8 H
--- NOTE | 2023-05-11 15:54 | PC.NURSE ---
Ivanna discontinued @ 0840 am. Dressing changed by Dr. Callahan. PT eval with Koko, pt ambulated in hallway and spent majority of the day in his recliner. IS to 2200 times 4 with fair breath hold and cough after treatment. Reminded pt to splint abdomen. Please see eMar for numerous pain meds provided this am, pt has anxiety r/to movement and position changes. IV Zosyn infused w/o difficulty. LR continues at 125cc/hr. Pt needs encouragement to take in oral fluids. No void since catheter removed, nursing will monitor for urine output. Report to Elizabeth Hickman RN for evening shift.
--- NOTE | 2023-05-11 17:30 | PC.NURSE ---
Late entry for 05/10/23. RN stayed 40 minutes off the clock attempting to document the administration of IV Zosyn on this patient @ 1330, infusion completed on 05/10/23 at 1410. I attempted to do an unscheduled admin with the assist of 4 other RNs, Blanca Kumar and Angie Allen RN as assistants with this process. Another nurse used my infusion time so it could not be properly edited. Pharmacist Loi unable to assist with this system problem. Blanco Montalvo RN
[2023-05-11] MEDS: 0.9 % SODIUM CHLORIDE 1000 ml 1,000 ML IV (19:46)
[2023-05-11] MEDS: ENOXAPARIN 40 MG/0.4 ML INJ SUBCUT (21:42)
--- NOTE | 2023-05-11 23:51 | PC.NURSE ---
End of Shift: Patient pleasant and cooperative. Up to chair and walking in hallway independently x2 this shift. Rating pain in abdomen 3-5/10 and PRN Oxycodone given x3 and PRN Toradol x1. Tolerating clear liquids with no nausea. Ostomy output changed from bloody/serosanguineous to green/brown liquid this shift, gas also noted in bag. Temp increased to 102.1 and heart rate 100-120 bpm. PRN Tylenol given. Updated Dr. Núñez and 1L NS bolus given.
[2023-05-12] VITALS (8 sets, daily range): BP systolic 135–148; BP diastolic 83–94; PULSE 92–119; RESP 16–20; TEMP 36.5–37.4; O2SAT 93–96
[2023-05-12] MEDS: PIPERACILLIN/TAZOBACTAM 3.375 GM in 0.9 % SODIUM CHLORIDE Mini-bag 100 ML IVPB ×4 (01:11→18:39)
[2023-05-12] MEDS: OXYCODONE 1 MG/ML ORAL SOLN PO ×8 (01:19→21:59)
[2023-05-12 06:32] LABS: Basophils Absolute Auto 0.03 K/uL (0.00-0.30); Basophils Percent Auto 0.3 % (0.0-3.0); Eosinophils Absolute Auto 0.35 K/uL (0.00-0.50); Hematocrit 34.1 % (37.0-53.0); Hemoglobin* 11.3 gm/dL (13.5-17.5); Immature Granulocytes Abs Auto 0.01 K/uL (0.00-0.30); Immature Granulocytes Pct Auto 0.1 %; Mean Corpuscular HGB Conc 33 gm/dL (32-36); Mean Corpuscular Hemoglobin 29 pg (26-34); Mean Corpuscular Volume 87 fL (80-100); Monocytes Percent Auto 6.3 % (0.0-11.0); Neutrophils Percent Auto 77.3 % (42.0-72.0); Platelet Count* 284 K/uL (140-440); RDW Coefficient of Variation % 13.2 % (11.5-15.5); Red Blood Count 3.91 m/uL (4.30-5.90); White Blood Count* 8.83 K/uL (4.50-11.00)
--- NOTE | 2023-05-12 06:34 | PC.NURSE ---
Pt alert and oriented x3. Afebrile. Pt reports 4/10 pain in abdomen managed with PRN medications. Pt?s midline incision is CDI. Tele is NSR. Pt denies N/V, SOB, and chest pain. Pt is up SBA, tolerating a clear liquid diet and slept intermittently throughout night. ??
[2023-05-12 06:41] LABS: Slide Review Reflex No
[2023-05-12 06:49] LABS: Chloride* 102 mmol/L (96-114); Sodium* 138 mmol/L (135-149)
[2023-05-12 06:50] LABS: Potassium* 4.7 mmol/L (3.6-5.1)
[2023-05-12 06:52] LABS: Creatinine* 0.7 mg/dL (0.5-1.5); Est. Creatinine Clearance* 160.95; Estimated Glomerular Filt Rate 117 ml/min
[2023-05-12 06:53] LABS: Anion Gap 6 mEq/L (7-15); Blood Urea Nitrogen* 7 mg/dL (5-24); Calcium* 8.8 mg/dL (8.4-10.6); Carbon Dioxide* 30 mmol/L (20-32); Glucose* 112 mg/dL (60-115)
[2023-05-12 07:26] LABS: C Reactive Protein* 20.5 mg/dL (0.5-1.0)
[2023-05-12] MEDS: LACTATED RINGERS 1000 ML 1,000 ML 125 ML IV ×2 (07:39→18:33)
[2023-05-12] MEDS: ACETAMINOPHEN SUSPENSION 1 BOTTLE 650 MG PO (09:03)
--- NOTE | 2023-05-12 10:18 | NUTR.NU ---
RDN with MD consult for ileostomy. Patient admitted with diverticulitis, found to have a perforation status post op day 2 of resection with loop ileostomy placement. Current diet is Clear Liquids. Current height 6ft 3in; Weight 218lb 4.8oz; BMI is 27.3 kg/m2. Per weight history, weight has been stable within the last 180 days. RDN visited with patient whom declined diet education at this time He requested RDN come back tomorrow, or closer to discharge, to provide diet education with family members present. RDN will continue to monitor and follow-up at later date per patient request.
--- NOTE | 2023-05-12 13:41 | PM.IMPN1 ---
Progress Note: A&P Assessment and plan (1) Diverticulitis of colon with perforation: Problem details: Partial colectomy morning for sepsis secondary to perforated diverticulitis. Colostomy in place. Continue IV Zosyn, IV fluids, clear liquid diet. Pain control with IV and/or po narcotics, toradol. Encouraged sitting up in chair, ambulation, IS. Status: Acute (2) Sepsis: Problem details: Secondary to diverticulitis, now improving after surgical removal of affected part of colon. - 05/12: still mildly tachycardic at times, but improving overall. WBC is wnl and CRP is improving, which is reassuring. If elevated HR and temps do not resolve by tomorrow, consider CXR to look for pneumonia. Status: Acute (3) Anxiety: Problem details: Anxiety about pain: recommended breathing techniques and I have added prn hydroxyzine. - 05/12: improving. Status: Acute Plan VTE prophylaxis with SCDs and low dose enoxaparin. Subjective Time Seen by Provider: 09:49 Date Seen: 05/12/23 Interval history: Vishnu is feeling much better today. He is having less pain, but he does note that he has not been able to get by with stretching out oxycodone to q4h yet. He is still needing it q3h. I encouraged him to use IS frequently and to take 6 small walks in the hallway today. Exam Narrative: Exam Narrative: General: No acute distress. Sitting up in a chair, awake, alert, oriented. No pallor. No jaundice. Oropharynx: Clear. Mucous membranes moist. Cardiovascular: Regular rate and rhythm. No murmurs, gallops, or rubs. Respiratory: Fine crackle in left base. No wheezes. Extremities: No pedal edema. Const: Vital Signs, click to edit/add: Vital Signs - 24 hr 05/11/23 15:00 05/11/23 15:00 05/11/23 15:00 Temperature 99.0 F Pulse Rate 97 Pulse Rate [Apical ] 104 H 104 H Pulse Rate [Pulse Oximeter] Respiratory Rate 18 18 Blood Pressure [Le ft Arm] 143/85 H Pulse Oximetry 94 Oxygen Delivery Me thod Room Air 05/11/23 19:00 05/11/23 19:45 05/11/23 21:30 Temperature 102.1 F H 102.1 F H 98.3 F Pulse Rate Pulse Rate [Apical ] 120 H Pulse Rate [Pulse Oximeter] Respiratory Rate 16 Blood Pressure [Le ft Arm] 139/87 Pulse Oximetry 95 Oxygen Delivery Me thod Room Air 05/11/23 23:20 05/11/23 23:20 05/12/23 01:20 Temperature 97.7 F Pulse Rate 99 Pulse Rate [Apical ] 104 H 92 Pulse Rate [Pulse Oximeter] Respiratory Rate 16 16 Blood Pressure [Le ft Arm] 141/83 H Pulse Oximetry 94 Oxygen Delivery Me thod Room Air 05/12/23 07:45 05/12/23 09:00 Temperature 99.3 F Pulse Rate 100 Pulse Rate [Apical ] Pulse Rate [Pulse Oximeter] 107 H Respiratory Rate 20 Blood Pressure [Le ft Arm] 135/92 H Pulse Oximetry 93 Oxygen Delivery Me thod Room Air Documenting provider has reviewed patient's vital signs: yes Labs Labs: Laboratory Results - last 24 hr 05/12/23 06:06 WBC 8.83 RBC 3.91 L Hgb 11.3 L Hct 34.1 L MCV 87 MCH 29 MCHC 33 RDW Coeff of Jennifer 13.2 Plt Count 284 Neut % (Auto) 77.3 H Lymph % (Auto) 12.0 L [place] % (Auto) 6.3 Eos % (Auto) 4.0 Baso % (Auto) 0.3 Neut # (Auto) 6.80 Lymph # (Auto) 1.10 [place] # (Auto) 0.60 Eos # (Auto) 0.35 Baso # (Auto) 0.03 Abs Immat Gran (auto) 0.01 Imm/Tot Granulo (auto) 0.1 Sodium 138 Potassium 4.7 Chloride 102 Carbon Dioxide 30 Anion Gap 6 L BUN 7 Creatinine 0.7 Estimated Creat Clear 160.95 Estimated GFR 117 Glucose 112 Calcium 8.8 C-Reactive Protein 20.5 H
[2023-05-12] MEDS: HYDROmorphone 0.5 mg/0.5 ml inj IVP (14:05)
--- NOTE | 2023-05-12 14:51 | P.GSPN_ITS ---
Subjective Subjective Date Seen: 05/12/23 Interval history: Pancho had a fever overnight up to 102. This has improved. He began having stoma output today in the form of darker green drainage as well as gas. He is somewhat distended and having hiccups however. He has not have much of an appetite. He did get up yesterday and walk. He also works with physical therapy. He has been using his incentive spirometry. He states that at times the pain will go down to a 1 to 2/10. He is trying to take only oral medication during the day except for Toradol. He slept well overnight which helped. He is working on his anxiety about the entire situation by doing some deep breathing. This has been working for him so far. Exam Narrative: Exam Narrative: General: No acute distress CV: Mildly tachycardic in the low 100s. Respiratory: Breathing nonlabored on room air Abdomen: Mildly distended. Incision is clean and dry without erythema. Wound was change at the bedside. The both upper and lower wounds are clean. No significant drainage. No foul odor. Stoma is pink and proud. There is bilious output in the bag. Const: Vital Signs, click to edit/add: Vital Signs - 24 hr 05/11/23 15:00 05/11/23 15:00 05/11/23 15:00 Temperature 99.0 F Pulse Rate 97 Pulse Rate [Apical ] 104 H 104 H Pulse Rate [Pulse Oximeter] Respiratory Rate 18 18 Blood Pressure [Le ft Arm] 143/85 H Pulse Oximetry 94 Oxygen Delivery Me thod Room Air 05/11/23 19:00 05/11/23 19:45 05/11/23 21:30 Temperature 102.1 F H 102.1 F H 98.3 F Pulse Rate Pulse Rate [Apical ] 120 H Pulse Rate [Pulse Oximeter] Respiratory Rate 16 Blood Pressure [Le ft Arm] 139/87 Pulse Oximetry 95 Oxygen Delivery Hi thod Room Air 05/11/23 23:20 05/11/23 23:20 05/12/23 01:20 Temperature 97.7 F Pulse Rate 99 Pulse Rate [Apical ] 104 H 92 Pulse Rate [Pulse Oximeter] Respiratory Rate 16 16 Blood Pressure [Le ft Arm] 141/83 H Pulse Oximetry 94 [facility] 05/12/23 07:45 05/12/23 09:00 Temperature 99.3 F Pulse Rate 100 Pulse Rate [Apical ] Pulse Rate [Pulse Oximeter] 107 H Respiratory Rate 20 Blood Pressure [Le ft Arm] 135/92 H Pulse Oximetry 93 Oxygen Delivery Me thod Room Air Labs/Imaging Labs Labs: Hemoglobin is stable at 11.3. White blood cell count is down to 8.8. Similarly, CRP is down to 20.5 from 20/4. Electrolytes are within normal limits. Progress Note: A&P Assessment and plan (1) Anxiety: Problem details: Anxiety about pain: recommended breathing techniques and I have added prn hydroxyzine. - 05/12: improving. Status: Acute (2) Sepsis: Problem details: Secondary to diverticulitis, now improving after surgical removal of affected part of colon. - 05/12: still mildly tachycardic at times, but improving overall. WBC is wnl and CRP is improving, which is reassuring. If elevated HR and temps do not resolve by tomorrow, consider CXR to look for pneumonia. Status: Acute (3) Diverticulitis of colon with perforation: Problem details: Partial colectomy morning for sepsis secondary to perforated diverticulitis. Colostomy in place. Continue IV Zosyn, IV fluids, clear liquid diet. Pain control with IV and/or po narcotics, toradol. Encouraged sitting up in chair, ambulation, IS. Status: Acute Plan The patient is a 42-year-old male status post exploratory laparotomy and sigmoidectomy with loop ileostomy for perforated diverticulitis with peritonitis. He is doing well overall. He is still having fevers and tachycardia, however his labs are all trending in the right direction. Clinically he also appears improved and is starting to have antegrade bowel function. -recommend continue IV fluids and antibiotics for sepsis picture. -he can advance his diet if he does not feel distended any has more stoma output, however I would recommend that he continue with clear liquids today as he will likely have a partial ileus over the next few days -nutrition consult ordered. They are going to see him tomorrow as he was not feeling quite up to today. -stoma RN to see patient is well. I explained to the patient that we will set him up for an outpatient visit as well after discharge. -continue to encourage incentive spirometry and ambulation. -Lovenox/scds for DVT prophylaxis.
--- NOTE | 2023-05-12 20:26 | PC.NURSE ---
End of shift [id number] - Pt alert, oriented x 4, and pleasant. Up independently in room and hallways. Tolerating RA, clear liquid diet. Pt denied SOB, dizziness, but report pain in abdomen as high as 5-7/10 that increased with position change and walking. Medication given per interventions in MAR with verbalized improvement. Ice packs applied to site and pt demonstrated proper splinting technique for abdominal support. Pt did report one episode of nausea after midday walk, refused medication and aromatherapy patch as interventions. Episode passed with no emesis reported. Pt required full assistance with ostomy bag management. RN provided education on emptying process and provided emotional support regarding pt aversion to ostomy bag. Family at bedside during shift, RN noted improvement in pt mood after visit. Pt appears to be resting comfortably in chair at end of shift.
[2023-05-12] MEDS: ENOXAPARIN 40 MG/0.4 ML INJ SUBCUT (21:42)
[2023-05-13] VITALS (7 sets, daily range): BP systolic 135–153; BP diastolic 81–99; PULSE 87–106; RESP 14–20; TEMP 36.7–37.3; O2SAT 96–98
[2023-05-13] MEDS: OXYCODONE 1 MG/ML ORAL SOLN PO ×7 (02:23→21:32)
[2023-05-13] MEDS: PIPERACILLIN/TAZOBACTAM 3.375 GM in 0.9 % SODIUM CHLORIDE Mini-bag 100 ML IVPB ×4 (02:26→18:42)
[2023-05-13] MEDS: KETOROLAC 15 MG/ML inj IVP ×2 (04:23→21:32)
[2023-05-13] MEDS: LACTATED RINGERS 1000 ML 1,000 ML 125 ML IV (06:38)
[2023-05-13 06:48] LABS: Basophils Absolute Auto 0.04 K/uL (0.00-0.30); Basophils Percent Auto 0.5 % (0.0-3.0); Eosinophils Absolute Auto 0.51 K/uL (0.00-0.50); Eosinophils Percent Auto 6.6 % (0.0-7.0); Hematocrit 32.7 % (37.0-53.0); Hemoglobin* 10.8 gm/dL (13.5-17.5); Immature Granulocytes Abs Auto 0.02 K/uL (0.00-0.30); Immature Granulocytes Pct Auto 0.3 %; Lymphocytes Percent Auto 19.7 % (20-44); Mean Corpuscular HGB Conc 33 gm/dL (32-36); Mean Corpuscular Hemoglobin 29 pg (26-34); Mean Corpuscular Volume 87 fL (80-100); Monocytes Percent Auto 6.6 % (0.0-11.0); Neutrophils Absolute Auto 5.15 K/uL (1.7-7.0); Neutrophils Percent Auto 66.3 % (42.0-72.0); Platelet Count* 311 K/uL (140-440); RDW Coefficient of Variation % 13.2 % (11.5-15.5); Red Blood Count 3.77 m/uL (4.30-5.90); White Blood Count* 7.76 K/uL (4.50-11.00)
[2023-05-13 06:53] LABS: Slide Review Reflex No
[2023-05-13 07:05] LABS: Chloride* 102 mmol/L (96-114)
[2023-05-13 07:06] LABS: Potassium* 3.7 mmol/L (3.6-5.1); Sodium* 135 mmol/L (135-149)
[2023-05-13 07:09] LABS: Anion Gap 8 mEq/L (7-15); Blood Urea Nitrogen* 10 mg/dL (5-24); Calcium* 8.4 mg/dL (8.4-10.6); Carbon Dioxide* 25 mmol/L (20-32); Creatinine* 0.7 mg/dL (0.5-1.5); Est. Creatinine Clearance* 160.95; Estimated Glomerular Filt Rate 117 ml/min; Glucose* 97 mg/dL (60-115)
[2023-05-13 10:50] LABS: C Reactive Protein* 11.5 mg/dL (0.5-1.0)
--- NOTE | 2023-05-13 13:20 | NUTR.NU ---
PASCUALN with follow-up related to MD consult for ileostomy. Patient continues on clear liquids diet. RDN visited with patient whom reports feeling better today. He declined receiving diet education, requesting RDN come back tomorrow. RDN will attempt to visit with patient tomorrow for diet education. Will continue to monitor.
[2023-05-13 13:24] LABS: Albumin* 3.1 g/dL (3.3-5.0)
[2023-05-13 13:27] LABS: Alkaline Phosphatase* 90 U/L (40-150); Aspartate Amino Transferase* 62 U/L (12-35); Bilirubin Direct* 0.3 mg/dL (0.0-0.5); Bilirubin Total* 0.6 mg/dL (0.1-1.5); Total Protein* 5.9 g/dL (6.0-8.3)
[2023-05-13 13:28] LABS: Alanine Aminotransferase* 32 U/L (4-50)
--- NOTE | 2023-05-13 14:41 | PC.NURSE ---
Patient alert and orientedx4, ambulates independently in the hallways. Pain managed by PRN oxycodone effectively. Continues on clear liquid diet. Vital signs stable. NSR/Tachy on tele. Vital signs stable. Patient reports to be less anxious this shift than he was before. Patient verbalizes readiness for education on how to empty pouch, education on how to empty pouch started this shift. Patient continues to need reinforcement on stoma and pouch management. Performs IS independently.
--- NOTE | 2023-05-13 14:52 | P.IMPN_ITS ---
Progress Note: A&P Assessment and plan (1) Diverticulitis of colon with perforation: Problem details: Partial colectomy secondary to perforated diverticulitis. Diverting ileostomy in place. Continue IV Zosyn, IV fluids, clear liquid diet. Pain control with IV and/or po narcotics, toradol. Encouraged sitting up in chair, ambulation, IS. Status: Acute (2) Sepsis: Problem details: -improved Status: Acute (3) Anxiety: Problem details: -improved Status: Acute Subjective Date Seen: 05/13/23 Interval history: Daily Progress Note - Hospital Medicine Day #:5 POST OP DAY: 3 1. Sigmoidectomy with primary anastomosis 2. Complete Mobilization of the splenic flexure 3. Rigid proctoscopy 4. Diverting loop ileostomy CC: abdominal pain; poor appetite, stoma care OVERNIGHT UPDATES FROM STAFF & MED, LAB, IMAGING UPDATES Patient continues to improve daily. His labs reflected down trending white blood cell count and CRP. His stoma is putting out gas and dark stool. He continues to need frequent Q 2-3 hour oxycodone doses. Vital stable Objective: Vitals: see above Lungs: Clear. Cardiac: S1S2. Abdominal exam: Stoma is pink and looks well perfused. No leakage.. Disposition/Potential discharge - Likely to return to previous living situation. Today I spent 50minutes seeing the patient, reviewing Expanse and EPIC notes/diagnostics, discussing the care plan with our care time that includes social work, PT/OT, pharmacy, RT, [facility] and documenting my impressions and plan in the medical record. Exam Const: Vital Signs, click to edit/add: Vital Signs - 24 hr 05/12/23 15:00 05/12/23 19:00 05/12/23 19:23 Temperature 98.2 F 97.9 F Pulse Rate 104 H Pulse Rate [Pulse Oximeter] 119 H 93 Respiratory Rate 16 16 Blood Pressure [Le ft Arm] 148/93 H 139/94 H Pulse Oximetry 94 96 Oxygen Delivery Me thod Room Air Room Air 05/12/23 20:46 05/12/23 21:38 05/12/23 21:38 Temperature 97.9 F Pulse Rate 97 Pulse Rate [Pulse Oximeter] 93 93 Respiratory Rate 16 16 Blood Pressure [Le ft Arm] 139/94 H Pulse Oximetry 96 Oxygen Delivery Me thod Room Air 05/13/23 02:34 05/13/23 09:00 05/13/23 09:00 Temperature 98.1 F Pulse Rate 106 H Pulse Rate [Pulse Oximeter] 93 Respiratory Rate 20 20 Blood Pressure [Le ft Arm] 135/81 Pulse Oximetry 96 Oxygen Delivery Me thod Room Air 05/13/23 09:00 05/13/23 13:05 Temperature 98.3 F 98.2 F Pulse Rate Pulse Rate [Pulse Oximeter] 91 96 Respiratory Rate 14 14 Blood Pressure [Le ft Arm] 136/91 H 153/94 H Pulse Oximetry 96 98 Oxygen Delivery Me thod Room Air Room Air Labs Labs: Laboratory Results - last 24 hr 05/13/23 05/13/23 05/13/23 06:00 10:09 12:29 WBC 7.76 RBC 3.77 L Hgb 10.8 L Hct 32.7 L MCV 87 MCH 29 MCHC 33 RDW Coeff of Jennifer 13.2 Plt Count 311 Neut % (Auto) 66.3 Lymph % (Auto) 19.7 L [place] % (Auto) 6.6 Eos % (Auto) 6.6 Baso % (Auto) 0.5 Neut # (Auto) 5.15 Lymph # (Auto) 1.50 [place] # (Auto) 0.50 Eos # (Auto) 0.51 H Baso # (Auto) 0.04 Abs Immat Gran (auto) 0.02 Imm/Tot Granulo (auto) 0.3 Sodium 135 Potassium 3.7 Chloride 102 Carbon Dioxide 25 Anion Gap 8 BUN 10 Creatinine 0.7 Estimated Creat Clear 160.95 Estimated GFR 117 Glucose 97 Calcium 8.4 Total Bilirubin 0.6 Direct Bilirubin 0.3 AST 62 H ALT 32 Alkaline Phosphatase 90 C-Reactive Protein 11.5 H Total Protein 5.9 L Albumin 3.1 L Lab Acknowledgement Test Added Test Added
--- NOTE | 2023-05-13 16:05 | PM.GSPN ---
Subjective Subjective Date Seen: 05/13/23 Interval history: Vishnu is doing well. He has been walking. His pain is better controlled. He is working on decreasing the frequency of his oral pain meds. He is tolerating clears though yesterday he did have some nausea. He states he has the occasional hiccups. He is putting out bilious liquid from his stoma. Has not been febrile in the last 24 hours. He also has not been as tachycardic. Exam Narrative: Exam Narrative: General: NAD CV: Regular rate Respiratory: Breathing nonlabored on room air Abdomen: Mildly distended. Stoma bag was leaking small amount on the inferior dressing. Stoma bag was changed and the patient was educated on this. Stoma appears pink and proud. It is edematous. Wound was then changed. Both wounds are clean. No exudate. No erythema. Const: Vital Signs, click to edit/add: Vital Signs - 24 hr 05/12/23 19:00 05/12/23 19:23 05/12/23 20:46 Temperature 97.9 F Pulse Rate 104 H 97 Pulse Rate [Pulse Oximeter] 93 Respiratory Rate 16 Blood Pressure [Le ft Arm] 139/94 H Pulse Oximetry 96 Oxygen Delivery Me thod Room Air 05/12/23 21:38 05/12/23 21:38 05/13/23 02:34 Temperature 97.9 F 98.1 F Pulse Rate Pulse Rate [Pulse Oximeter] 93 93 93 Respiratory Rate 16 16 20 Blood Pressure [Le ft Arm] 139/94 H 135/81 Pulse Oximetry 96 96 Oxygen Delivery Nj thod Room Air Room Air 05/13/23 09:00 05/13/23 09:00 05/13/23 09:00 Temperature 98.3 F Pulse Rate 106 H Pulse Rate [Pulse Oximeter] 91 Respiratory Rate 20 14 Blood Pressure [Le ft Arm] 136/91 H Pulse Oximetry 96 Oxygen Delivery Me thod Room Air 05/13/23 13:05 Temperature 98.2 F Pulse Rate Pulse Rate [Pulse Oximeter] 96 Respiratory Rate 14 Blood Pressure [Le ft Arm] 153/94 H Pulse Oximetry 98 Oxygen Delivery Nj thod Room Air Labs/Imaging Labs Labs: White blood cell count is normal. CRP is down to 11.5. Pathology review. This shows diverticulitis with perforation. Progress Note: A&P Assessment and plan (1) Diverticulitis of colon with perforation: Problem details: Partial colectomy secondary to perforated diverticulitis. Diverting ileostomy in place. Continue IV Zosyn, IV fluids, clear liquid diet. Pain control with IV and/or po narcotics, toradol. Encouraged sitting up in chair, ambulation, IS. Status: Acute (2) Ileostomy status: Status: Acute Plan Vishnu is a 42-year-old male who is now postop day 4 status post sigmoidectomy with primary anastomosis and diverting loop ileostomy for perforated diverticulitis. He is doing well overall. -fever curve has improved. Continue IV antibiotics for now. Will likely discharge home on oral antibiotics 7-10 day course total depending on clinical picture -will advance diet today. He is going to go slow however because he does not have full return of bowel function. He has had antegrade ostomy output for 2 days, however he is still mildly distended and does have occasional hiccups. -decrease maintenance IV fluid -continue to encourage ambulation and incentive spirometry. -he is going to meet with Nutrition tomorrow to talk about ileostomy diet. He and I did talk about watching his stoma output and the need for possible adding of Imodium after discharge. I will have those instructions for him in his discharge orders. -he will need to follow up in stoma clinic next week if able. We will work on getting that appointment. -he should follow up with me next week in [place] if he is discharged Wednesday. -his and is willing to do his daily dressing changes. She should be instructed on how to do this prior to discharge. -continue Lovenox for DVT prophylaxis. -I anticipate 1-2 more days in the hospital. Patient will be safe for discharge home once his tachycardia, fever in other active signs of infection necessitating IV antibiotics have completely resolved, he is tolerating regular diet, and he is able to care for his stoma and wounds.
[2023-05-13] MEDS: LACTATED RINGERS 1000 ML 1,000 ML 75 ML IV (18:03)
[2023-05-13] MEDS: ENOXAPARIN 40 MG/0.4 ML INJ SUBCUT (21:31)
--- NOTE | 2023-05-13 22:33 | PC.NURSE ---
End of Shift [id number] -Pt alert, oriented, cooperative to care. Up independently in room, observed to ambulate in halls. Tolerating RA, regular diet, fluids. Pt reported pain as 4/10 at rest and 5-6/10 with activity. Pain managed with medication per MAR with pt noting he would like to begin increasing the intervals between doses. Pt observed to empty ostomy bag and shared with RN that he has been able to begin accepting responsibility for ostomy and ostomy care. Pt also reported to RN he is hesitant to eat, but has begun adding solid foods into his diet. He reports feeling bloated and swollen. RN examined abdomen and LE and noted a round, firm abdomen and very minimal trace edema in LE. SCDs placed on bilateral LE and legs elevated while in bed. RN provided education regarding continuing to walk halls as tolerated. Pt appears to be resting comfortably at end of shift.
[2023-05-14] VITALS (9 sets, daily range): BP systolic 131–149; BP diastolic 86–91; PULSE 76–87; RESP 14–18; TEMP -16.1–37.1; O2SAT 95–100
[2023-05-14] MEDS: PIPERACILLIN/TAZOBACTAM 3.375 GM in 0.9 % SODIUM CHLORIDE Mini-bag 100 ML IVPB ×4 (01:16→18:32)
[2023-05-14] MEDS: OXYCODONE 1 MG/ML ORAL SOLN PO (02:54)
[2023-05-14 07:04] LABS: Basophils Absolute Auto 0.03 K/uL (0.00-0.30); Basophils Percent Auto 0.5 % (0.0-3.0); Eosinophils Percent Auto 7.5 % (0.0-7.0); Hematocrit 30.8 % (37.0-53.0); Hemoglobin* 10.3 gm/dL (13.5-17.5); Immature Granulocytes Abs Auto 0.02 K/uL (0.00-0.30); Immature Granulocytes Pct Auto 0.3 %; Lymphocytes Absolute Auto 1.47 K/uL (0.90-2.90); Lymphocytes Percent Auto 23.9 % (20-44); Mean Corpuscular HGB Conc 33 gm/dL (32-36); Mean Corpuscular Hemoglobin 29 pg (26-34); Mean Corpuscular Volume 86 fL (80-100); Neutrophils Absolute Auto 3.81 K/uL (1.7-7.0); Neutrophils Percent Auto 61.8 % (42.0-72.0); Platelet Count* 320 K/uL (140-440); RDW Coefficient of Variation % 12.8 % (11.5-15.5); Red Blood Count 3.58 m/uL (4.30-5.90); White Blood Count* 6.16 K/uL (4.50-11.00)
[2023-05-14 07:32] LABS: Chloride* 102 mmol/L (96-114); Sodium* 136 mmol/L (135-149)
[2023-05-14 07:33] LABS: Albumin* 3.1 g/dL (3.3-5.0)
[2023-05-14 07:36] LABS: Alanine Aminotransferase* 43 U/L (4-50); Alkaline Phosphatase* 127 U/L (40-150); Anion Gap 8 mEq/L (7-15); Aspartate Amino Transferase* 72 U/L (12-35); Bilirubin Total* 0.5 mg/dL (0.1-1.5); Blood Urea Nitrogen* 9 mg/dL (5-24); Carbon Dioxide* 26 mmol/L (20-32); Creatinine* 0.7 mg/dL (0.5-1.5); Est. Creatinine Clearance* 160.95; Estimated Glomerular Filt Rate 117 ml/min; Glucose* 87 mg/dL (60-115); Total Protein* 5.8 g/dL (6.0-8.3)
[2023-05-14 07:37] LABS: Calcium* 8.4 mg/dL (8.4-10.6)
[2023-05-14 07:39] LABS: C Reactive Protein* 5.7 mg/dL (0.5-1.0)
[2023-05-14 07:42] LABS: Slide Review Reflex No
--- NOTE | 2023-05-14 08:00 | PC.NURSE ---
Pt alert and oriented x3. Afebrile. Pt reports 3/10 pain managed with PRN oxycodone. Pt requests 10mg of oxycodone for pain Q3-4H. RN gave education on pain management and side effects with oxycodone, discussed trying 5 mg of oxycodone to try and wean, pt refused stating I want to try and stay on top of the pain and the 10mg is working. I am trying to go longer periods at a time w/o the 10mg but I want to continue taking 10mg Pt's colostomy is patent and draining brown/green stool. Pt's midline incision is CDI. Pt is up SBA with IV pole. Pt slept intermittently throughout night.
[2023-05-14] MEDS: ACETAMINOPHEN 325 MG TABLET 650 MG PO ×4 (08:22→21:31)
--- NOTE | 2023-05-14 10:00 | PM.GSPN ---
Subjective Subjective Date Seen: 05/14/23 Interval history: Patient is doing well today. He continues to have some pain in the abdomen but switched to Tylenol from oxycodone. He has gas and fluid in the stoma bag. He took a shower today in the morning. He tolerated full liquid diet yesterday and a banana. Exam Narrative: Exam Narrative: Abdomen is soft, not distended, not tender to palpation. Midline incision is healing well. The superior and inferior open portions of the incision were repacked today and the tissue looks healthy. The right lower quadrant loop ileostomy is edematous but pink and well perfused. There is some green fluid in the bag. Const: Vital Signs, click to edit/add: Vital Signs - 24 hr 05/13/23 13:05 05/13/23 15:45 05/13/23 16:45 Temperature 98.2 F 99.1 F Pulse Rate 106 H Pulse Rate [Apical ] 87 Pulse Rate [Pulse Oximeter] 96 87 Respiratory Rate 14 16 Blood Pressure [Le ft Arm] 153/94 H 150/97 H Blood Pressure [Ri ght Arm] Pulse Oximetry 98 98 Oxygen Delivery Me thod Room Air Room Air 05/13/23 19:45 05/13/23 23:45 05/13/23 23:45 Temperature 98.2 F 98.4 F Pulse Rate Pulse Rate [Apical ] Pulse Rate [Pulse Oximeter] 90 88 Respiratory Rate 20 16 18 Blood Pressure [Le ft Arm] 143/85 H Blood Pressure [Ri ght Arm] 143/99 H Pulse Oximetry 96 96 Oxygen Delivery Me thod Room Air Room Air 05/14/23 02:50 05/14/23 05:25 05/14/23 09:03 Temperature 98.7 F Pulse Rate 77 Pulse Rate [Apical ] Pulse Rate [Pulse Oximeter] 87 87 Respiratory Rate 18 18 Blood Pressure [Le ft Arm] Blood Pressure [Ri ght Arm] 139/86 Pulse Oximetry 95 Oxygen Delivery Me thod Room Air 05/14/23 09:03 05/14/23 09:19 Temperature 98.3 F Pulse Rate 87 Pulse Rate [Apical ] Pulse Rate [Pulse Oximeter] 87 Respiratory Rate 16 Blood Pressure [Le ft Arm] 141/87 H Blood Pressure [Ri ght Arm] Pulse Oximetry 95 Oxygen Delivery Me thod Room Air Progress Note: A&P Assessment and plan (1) History of open sigmoidectomy: Status: Acute Assessment and Plan: 42-year-old male s/p open sigmoidectomy with primary anastomosis and diverting loop ileostomy POD 4. Patient is recovering well. He transitioned his pain medication to Tylenol. He will advance his diet slowly. Today we will focus on teaching ileostomy cares and teaching his how to do wet-to-dry dressing changes. Possible discharge home tomorrow.
--- NOTE | 2023-05-14 10:59 | NUTR.NU ---
RDN with MD consult for ileostomy. Patient admitted with diverticulitis, found to have a perforation status post op day 4 of resection with loop ileostomy placement. Current weight 218lbs 4.8oz; height 6ft 3in; BMI is overweight at 27.3 kg/m2. Current diet is Regular. Patient reports tolerating yogurt, applesauce, and malt-o-meal. Patient's family present during visit. RDN offered diet education related to ileostomy, and patient agreed with family members present. Patient was provided diet education related to new ileostomy. Education provided on following a low fiber diet for the next ~4 weeks or per MD recommendations. Education included recommendations on following a low-fiber diet of less than 13 grams of fiber per day and included foods that are recommended and not recommended.?Also discussed foods that may cause odors, gas, blockages, and diarrhea and foods that may relieve gas, odors, and diarrhea. Include in discussion was rehydration information when output is high. Verbal and written information as well as sample menus provided from [facility] on nutrition therapy for ileostomy and low-fiber diet.?Patient verbalized understanding and had no questions or concerns.?RDN's contact information was provided and patient was encouraged to contact RDN with questions.
--- NOTE | 2023-05-14 12:33 | P.IMPN_ITS ---
Progress Note: A&P Assessment and plan (1) History of open sigmoidectomy: Problem details: Postop day 4 Status: Acute (2) Diverticulitis of colon with perforation: Problem details: Partial colectomy secondary to perforated diverticulitis, postop day 4. Diverting ileostomy in place. Continue IV Zosyn, IV fluids, advancing diet Pain control with IV and/or po narcotics, toradol. Encouraged sitting up in chair, ambulation, IS. Status: Acute (3) Anxiety: Problem details: -improved Status: Acute (4) Sepsis: Problem details: -improved Status: Acute Subjective Date Seen: 05/14/23 Interval history: Daily Progress Note - Hospital Medicine Day #: 6 POST OP DAY: 4 1. Sigmoidectomy with primary anastomosis 2. Complete Mobilization of the splenic flexure 3. Rigid proctoscopy 4. Diverting loop ileostomy CC: abdominal pain; poor appetite, stoma care OVERNIGHT UPDATES FROM STAFF & MED, LAB, IMAGING UPDATES Patient continues to improve daily. His labs are encouraging. Inflammatory markers are down trending. Vital stable Objective: Alert. Ambulatory. Vitals: see above Lungs: Clear. Cardiac: S1S2. Abdominal exam: Stoma is pink and looks well perfused. No leakage.. Disposition/Potential discharge - Likely to return to previous living situation. Today I spent 50minutes seeing the patient, reviewing Expanse and EPIC notes/diagnostics, discussing the care plan with our care time that includes social work, PT/OT, pharmacy, RT, nursing home and documenting my impressions and plan in the medical record. Exam Const: Vital Signs, click to edit/add: Vital Signs - 24 hr 05/13/23 13:05 05/13/23 15:45 05/13/23 16:45 Temperature 98.2 F 99.1 F Pulse Rate 106 H Pulse Rate [Apical ] 87 Pulse Rate [Pulse Oximeter] 96 87 Respiratory Rate 14 16 Blood Pressure [Le ft Arm] 153/94 H 150/97 H Blood Pressure [Ri ght Arm] Pulse Oximetry 98 98 Oxygen Delivery Me thod Room Air Room Air 05/13/23 19:45 05/13/23 23:45 05/13/23 23:45 Temperature 98.2 F 98.4 F Pulse Rate Pulse Rate [Apical ] Pulse Rate [Pulse Oximeter] 90 88 Respiratory Rate 20 16 18 Blood Pressure [Le ft Arm] 143/85 H Blood Pressure [Ri ght Arm] 143/99 H Pulse Oximetry 96 96 Oxygen Delivery Me thod Room Air Room Air 05/14/23 02:50 05/14/23 05:25 05/14/23 09:03 Temperature 98.7 F Pulse Rate 77 Pulse Rate [Apical ] Pulse Rate [Pulse Oximeter] 87 87 Respiratory Rate 18 18 Blood Pressure [Le ft Arm] Blood Pressure [Ri ght Arm] 139/86 Pulse Oximetry 95 Oxygen Delivery Me thod Room Air 05/14/23 09:03 05/14/23 09:19 Temperature 98.3 F Pulse Rate 87 Pulse Rate [Apical ] Pulse Rate [Pulse Oximeter] 87 Respiratory Rate 16 Blood Pressure [Le ft Arm] 141/87 H Blood Pressure [Ri ght Arm] Pulse Oximetry 95 Oxygen Delivery Me thod Room Air Labs Labs: Laboratory Results - last 24 hr 05/13/23 05/13/23 05/14/23 06:00 12:29 06:21 WBC 6.16 RBC 3.58 L Hgb 10.3 L Hct 30.8 L MCV 86 MCH 29 MCHC 33 RDW Coeff of Jennifer 12.8 Plt Count 320 Neut % (Auto) 61.8 Lymph % (Auto) 23.9 [place] % (Auto) 6.0 Eos % (Auto) 7.5 H Baso % (Auto) 0.5 Neut # (Auto) 3.81 Lymph # (Auto) 1.47 [place] # (Auto) 0.40 Eos # (Auto) 0.50 Baso # (Auto) 0.03 Abs Immat Gran (auto) 0.02 Imm/Tot Granulo (auto) 0.3 Sodium 136 Potassium 4.0 Chloride 102 Carbon Dioxide 26 Anion Gap 8 BUN 9 Creatinine 0.7 Estimated Creat Clear 160.95 Estimated GFR 117 Glucose 87 Calcium 8.4 Magnesium 2.0 Total Bilirubin 0.6 0.5 Direct Bilirubin 0.3 AST 62 H 72 H ALT 32 43 Alkaline Phosphatase 90 127 C-Reactive Protein 5.7 H Total Protein 5.9 L 5.8 L Albumin 3.1 L 3.1 L Lab Acknowledgement Test Added
--- NOTE | 2023-05-14 15:09 | PC.NURSE ---
Patient stable all shift. Alert and oriented, ambulates to the bathroom and in the hallway independently. Ann TRAN educated patient on stoma care including pouch care. Verbalizes understanding, more education to be complicated before patient discharges, Patient to also follow up outpatient. LR and tele d/c'd this shift. Pain effectively managed by PRN tylenol. Vital signs remained stable all shift.
--- NOTE | 2023-05-14 15:42 | P.IMCN_ITS ---
Date of Consult Consult date: 05/14/23 Requesting Physician: General Surgery Primary Care Provider: Not a Local Provider Consult Narrative Reason for consult: new illeostomy Narrative: Pancho Cosby is a 42 year old male being seen by wound services r/t his new ileostomy. Patient presented to ER with abdominal pain d/t Perforated sigmoid diverticulitis, deemed septic and was brought to OR for open sigmoidectomy and creation of RLQ loop illeostomy. currently afebrile. Patient was otherwise healthy prior to this. Non-smoker, not obese, rare occasional alcohol use. Has met with nutrition. He is hoping to discharge in next 1-2 days. He has watched ostomy education videos. Tolerating PO intake. currently bananas and clear liquids. Understandable has anxiety surrounding his new stoma. Has independently emptied ostomy. Plan for to help with ostomy changes and surgical site wound care. Current ostomy in-place. last changed 05/13/23 by general surgery. Pre-op day 5: Perforated sigmoid diverticulitis with peritonitis Type of Procedure: 1. Sigmoidectomy with primary anastomosis 2. Complete Mobilization of the splenic flexure 3. Rigid proctoscopy 4. Diverting loop ileostomy Review of Systems Status of ROS: Reports: 6 or more systems reviewed and unremarkable except as noted in History and below [facility] Medical History (Updated 05/14/23 @ 12:36 by Jes Herring MD) Seasonal allergies ?J30.2 - Other seasonal allergic rhinitis (ICD-10) Surgical History S/P cholecystectomy ?Z90.49 - Acquired absence of other specified parts of digestive tract (ICD- 10) Social History (Updated 05/09/23 @ 14:10 by Vini Jurado MD) Narrative: Lives in [place]. with 2 kids ages 9 and 11. He works for a [employer]. He works a desk job. He does not smoke. He drinks alcohol 3 to 4 times a week. No recreational drug use What is your current living situation?: I presently have a place to live Problems where you live: no known problems Problems where you live details: N/A In the past 12 months, utilities in danger of being shut off: no In past 12 months, lack of transportation kept you from medical appts, meetings, work, or getting things needed for daily living: no In the past 12 mos, have been you worried that your food would run out before you had money to buy more?: never true In the past 12 mos, the food you bought just didn't last and you didn't have money to buy more?: never true Highest level of school completed/degree received: don't know Smoking Status: Never smoker Do you use any of these nicotine containing products: None Second hand tobacco smoke exposure: No How often do you have a drink containing alcohol: never How many standard drinks containing alcohol do you have on a typical day: 3 or 4 How often do you have six or more drinks on one occasion: Never AUDIT-C Alcohol total score: 1 Non-prescribed substance use: denies use How often does anyone, including family, friends and others, physically hurt you : never How often does anyone, including family, friends and others, insult or talk down to you: never How often does anyone, including family, friends and others, threaten you with harm: never How often does anyone, including family, friends and others, scream or curse at you: never service: No Meds Home Medications and Allergies Allergies Allergy/AdvReac Type Severity Reaction Status Date / Time No Known Drug Allergies Allergy Verified 05/09/23 10:47 Exam Narrative: Exam Narrative: General: NAD, Alert Pulmonary: unlabored, speaking in full sentences. Abdomen: soft, not distended, non-tender to palpation. Midline incision dressing in place. Right lower quadrant loop ileostomy is edematous, pink and we ll perfused, when visualized through transparent pouch. Roughly 200-300cc of green- brown fluid in the bag. Current ostomy appliance with no evidence of leaks, seal appears maintained. Psych: normal affect, makes eye contact Const: Vital Signs, click to edit/add: Vital Signs - 24 hr 05/13/23 15:45 05/13/23 16:45 05/13/23 19:45 Temperature 99.1 F 98.2 F Pulse Rate 106 H Pulse Rate [Apical ] 87 Pulse Rate [Pulse Oximeter] 87 90 Respiratory Rate 16 20 Blood Pressure [Le ft Arm] 150/97 H 143/85 H Blood Pressure [Ri ght Arm] Pulse Oximetry 98 96 Oxygen Delivery Me thod Room Air Room Air 05/13/23 23:45 05/13/23 23:45 05/14/23 02:50 Temperature 98.4 F 98.7 F Pulse Rate Pulse Rate [Apical ] Pulse Rate [Pulse Oximeter] 88 87 Respiratory Rate 16 18 18 Blood Pressure [Le ft Arm] Blood Pressure [Ri ght Arm] 143/99 H 139/86 Pulse Oximetry 96 95 Oxygen Delivery Me thod Room Air Room Air 05/14/23 05:25 05/14/23 09:03 05/14/23 09:03 Temperature 98.3 F Pulse Rate 77 Pulse Rate [Apical ] Pulse Rate [Pulse Oximeter] 87 87 Respiratory Rate 18 16 Blood Pressure [Le ft Arm] 141/87 H Blood Pressure [Ri ght Arm] Pulse Oximetry 95 Oxygen Delivery Me thod Room Air 05/14/23 09:19 05/14/23 12:34 05/14/23 15:07 Temperature 98.3 F 3 F L Pulse Rate 87 Pulse Rate [Apical ] Pulse Rate [Pulse Oximeter] 76 Respiratory Rate 14 Blood Pressure [Le ft Arm] Blood Pressure [Ri ght Arm] 144/91 H Pulse Oximetry 96 Oxygen Delivery Sc thod Room Air Documenting provider has reviewed patient's vital signs: yes Labs Labs: Short CBC 05/14/23 Range/Units 06:21 WBC 6.16 (4.50-11.00) K/uL Hgb 10.3 L (13.5-17.5) gm/dL Hct 30.8 L (37.0-53.0) % Plt Count 320 (140-440) K/uL BMP 05/14/23 06:21 Sodium 136 Potassium 4.0 Chloride 102 Carbon Dioxide 26 BUN 9 Creatinine 0.7 Glucose 87 Calcium 8.4 Liver Function 05/14/23 Range/Units 06:21 Total Bilirubin 0.5 (0.1-1.5) mg/dL AST 72 H (12-35) U/L ALT 43 (4-50) U/L Alkaline Phosphatase 127 (40-150) U/L Albumin 3.1 L (3.3-5.0) g/dL Assessment and Plan Assessment and plan (1) Anxiety: Problem comment: -improved Status: Acute (2) Ileostomy status: Status: Acute (3) History of open sigmoidectomy: Problem comment: Postop day 4 Status: Acute (4) Diverticulitis of colon with perforation: Problem comment: Partial colectomy secondary to perforated diverticulitis, postop day 4. Diverting ileostomy in place. Continue IV Zosyn, IV fluids, advancing diet Pain control with IV and/or po narcotics, toradol. Encouraged sitting up in chair, ambulation, IS. Status: Acute Plan illeostomy WNL for post-op day 5. ostomy/stoma education under taken. Listened to concerns and provided direction and reassurance. He verbalized feeling more confident in his ability to return home with his illeostomy. not present today during encounter but will be present at his outpatient f/u in our ostomy clinic. Appt. scheduled for 05/21/23 @1300. Patient provided with list of DME options, he will bring his choice to his ostomy clinic appt. Patient provided with stoma/ostomy change practice kit. Patient provided with 5 ostomy pouching systems to take home until seen in ostomy clinic. nursing updated on plans. Nursing to guide patient during his ostomy change tomorrow prior to his discharge.
--- NOTE | 2023-05-14 18:14 | PC.NURSE ---
End of shift: Patient alert and oriented x4, stoma is a beefy red w/black-brown output. Midline incision open to air, two sites covered with mepliex C/D/I. Patient rates pain 2/10 PRN Tylenol administered w/relief. Patient tolerating a reg. diet.
[2023-05-14] MEDS: ENOXAPARIN 40 MG/0.4 ML INJ SUBCUT (21:31)
[2023-05-15 00:20] VITALS: BP 141/93; PULSE 78; RESP 16; TEMP 36.6; O2SAT 96
[2023-05-15] MEDS: PIPERACILLIN/TAZOBACTAM 3.375 GM in 0.9 % SODIUM CHLORIDE Mini-bag 100 ML IVPB ×2 (00:37→07:16)
[2023-05-15] MEDS: ACETAMINOPHEN 325 MG TABLET 650 MG PO ×2 (00:37→05:13)
[2023-05-15 03:00] VITALS: BP 146/86; PULSE 75; RESP 16; TEMP 36.7; O2SAT 96
[2023-05-15 07:00] VITALS: BP 138/92; PULSE 68; RESP 16; TEMP 36.7; O2SAT 95
--- NOTE | 2023-05-15 07:35 | PM.DS1 ---
DS: Providers Provider Date Seen: 05/15/23 Date of admission: 05/09/23 13:36 Primary care physician: Not a Local Provider Admitting Clinician: Haley Javier MD Consults: 05/09/23 13:36 Consult to Physician [CONS] Urgent Comment: Consulting Provider: Paige Callahan Has provider been notified: Yes 05/10/23 19:04 Consult to Physical Therapy [CONS] Routine Comment: Reason(s) for PT Consult:: Evaluate and Treat Any Restrictions?:: See Comment Comment: Patient is having a lot of abdominal pain postop colectomy. Apprehensive about any activity. 05/11/23 08:32 Consult to Nutrition [CONS] Routine Comment: Reason for consult:: Nutritional Consult Comment: ileostomy Attending Physician on discharge: Haley Javier MD DS: Diagnosis Discharge Diagnosis (1) History of open sigmoidectomy: Status: Acute Problem details: Postop day 4 DS: Summary Hospital Course Hospital Course: Patient was admitted to the hospital with perforated sigmoid diverticulitis. He underwent open sigmoidectomy with primary anastomosis and diverting loop ileostomy. Patient did well postoperatively. He was tolerating regular diet and having ileostomy output. Patient underwent education of his ostomy cares. His midline incision had to open areas that were cared for with wet to dries (superiorly and inferiorly). Patient was ambulating independently. Time Spent with Patient Time attestation: Total time spent providing and/or coordinating discharge services: Exam Narrative: Exam Narrative: Abdomen is soft, not distended, midline laparotomy incision is healing well with superior and inferior open areas healing by secondary intention. There is no surrounding erythema or purulence in those open areas. The ileostomy is pink and still edematous. There is green drainage in the ileostomy bag. Const: Vital Signs, click to edit/add: Vital Signs - 24 hr 05/14/23 09:03 05/14/23 09:03 05/14/23 09:19 Temperature 98.3 F Pulse Rate 87 Pulse Rate [Pulse Oximeter] 87 87 Respiratory Rate 18 16 Blood Pressure [Le ft Arm] 141/87 H Blood Pressure [Ri ght Arm] Pulse Oximetry 95 Oxygen Delivery Me thod Room Air 05/14/23 12:34 05/14/23 15:00 05/14/23 15:00 Temperature 98.3 F 98.0 F Pulse Rate Pulse Rate [Pulse Oximeter] 76 80 80 Respiratory Rate 14 14 14 Blood Pressure [Le ft Arm] 131/90 H Blood Pressure [Ri ght Arm] 144/91 H Pulse Oximetry 96 100 Oxygen Delivery Me thod Room Air Room Air 05/14/23 15:07 05/14/23 19:30 05/14/23 23:00 Temperature 3 F L 98.3 F Pulse Rate Pulse Rate [Pulse Oximeter] 79 Respiratory Rate 14 16 Blood Pressure [Le ft Arm] Blood Pressure [Ri ght Arm] 149/88 H Pulse Oximetry 96 Oxygen Delivery Me thod Room Air 05/15/23 00:20 05/15/23 03:00 Temperature 97.9 F 98.1 F Pulse Rate Pulse Rate [Pulse Oximeter] 78 75 Respiratory Rate 16 16 Blood Pressure [Le ft Arm] Blood Pressure [Ri ght Arm] 141/93 H 146/86 H Pulse Oximetry 96 96 Oxygen Delivery Me thod Room Air Room Air DS: Data Data Completed and Pending Labs on day of discharge: Labs from last 24 hours 05/14/23 06:21 WBC 6.16 RBC 3.58 L Hgb 10.3 L Hct 30.8 L MCV 86 MCH 29 MCHC 33 RDW Coeff of Jennifer 12.8 Plt Count 320 Neut % (Auto) 61.8 Lymph % (Auto) 23.9 Nicholas % (Auto) 6.0 Eos % (Auto) 7.5 H Baso % (Auto) 0.5 Neut # (Auto) 3.81 Lymph # (Auto) 1.47 Nicholas # (Auto) 0.40 Eos # (Auto) 0.50 Baso # (Auto) 0.03 Abs Immat Gran (auto) 0.02 Imm/Tot Granulo (auto) 0.3 Sodium 136 Potassium 4.0 Chloride 102 Carbon Dioxide 26 Anion Gap 8 BUN 9 Creatinine 0.7 Estimated Creat Clear 160.95 Estimated GFR 117 Glucose 87 Calcium 8.4 Magnesium 2.0 Total Bilirubin 0.5 AST 72 H ALT 43 Alkaline Phosphatase 127 C-Reactive Protein 5.7 H Total Protein 5.8 L Albumin 3.1 L Discharge Plan Discharge Disposition: Home, Self-Care Date of Admission: 05/09/23 13:36 Attending Provider on Discharge: Summer Núñez Consulting Providers: Paige Callahan Primary Care Provider: Provider,Not a Local Condition: Improved Anticipated Discharge Date/Time: 05/15/23 12:33 Discharge Medications: New loperamide [Imodium A-D] 2 mg tablet 2 mg PO QID PRN (Reason: loose stool) Qty: 30 0RF Rx Instructions: Take 1 tab up to 4 times daily (30 min prior to meals and at bedtime) as needed if stoma output is greater than 1,500 ml per day. oxycodone 5 mg capsule 5 mg PO BID PRN (Reason: pain) Qty: 10 0RF Discharge Orders: Discharge Order (Routine); Ordered 05/15/23 Ordered By: Summer Núñez Additional Instructions: Please call if you are experiencing severe pain, nausea, vomiting, difficulty urinating, fever or have no or persistently high stoma output. Avoid swimming in the pool or hot tubs. The ileostomy supplies will be ordered at the wound clinic next week after patient checks coverage with his insurance. Patient's will be doing wet to dry dressing changes daily with gauze and saline. Activity Level: No strenuous activity Discharge Diet: Regular and Other Diet Detail: Ileostomy diet instructions Drink 8 to 10 cups of fluid per 24 hours. Avoid caffeine and high sugary drinks as these will stimulate the small intestine and increase stoma output. Foods that you should incorporate with each meal to thicken stool include bananas, cheese, pasta, rice, potatoes, bread, peanut butter and tapioca. Having one or two of these foods as a bedtime snack will also help keep the stool thicker overnight. Only consume about 4 ounces of fluid with each meal in order not to wash food through small intestine. You are being discharged home with a prescription for Imodium (loperamide). This can also be purchased [id number]. Imodium is used when your stoma output is greater than 1500 mL per day and dietary changes as listed above do not help. It is necessary to help avoid dehydration. You can take it up to 4 times a day, 30 min prior to meals and at bedtime to decrease output overnight. You can take up to 2 pills at once. If your output is persistently high despite the above changes, please contact Dr. Callahan's office at [phone]. Follow Up Appointments: Paige Callahan MD [Staff Physician] - (Follow up in [place] [address]/17/24 ) Provider,Not a Local [Primary Care Provider] - Ann Reyes CNP [Nurse Practitioner] - 05/21/23 1:00 pm ([facility] for ostomy care appointment. Check in at the Clinic and not at the Wound Care Center.) Forms: Pieceable Info Instructions
[2023-05-15] MEDS: OXYCODONE 5 MG TABLET PO (09:10)
--- NOTE | 2023-05-15 11:49 | P.DS_ITS ---
DS: Providers Provider Date Seen: 05/15/23 Date of admission: 05/09/23 13:36 Primary care physician: Not a Local Provider Admitting Clinician: Haley Javier MD Consults: 05/09/23 13:36 Consult to Physician [CONS] Urgent Comment: Consulting Provider: Paige Callahan Has provider been notified: Yes 05/10/23 19:04 Consult to Physical Therapy [CONS] Routine Comment: Reason(s) for PT Consult:: Evaluate and Treat Any Restrictions?:: See Comment Comment: Patient is having a lot of abdominal pain postop colectomy. Apprehensive about any activity. 05/11/23 08:32 Consult to Nutrition [CONS] Routine Comment: Reason for consult:: Nutritional Consult Comment: ileostomy Attending Physician on discharge: Jes Herring MD [facility] Date of Discharge: 05/15/23 DS: Diagnosis Discharge Diagnosis (1) Diverticulitis of colon with perforation: Status: Acute Problem details: Dr. Callahan performed an open sigmoidectomy with a diverting ileostomy on May 10, 2023. No complications. (2) History of open sigmoidectomy: Status: Acute Problem details: No complications. Patient taught stoma care and wound care. We appreciate wound care clinic involvement. (3) Ileostomy status: Status: Acute Problem details: Will see Dr. Callahan in follow-up (4) Anxiety: Status: Acute Problem details: -improved (5) Sepsis: Status: Acute Problem details: -improved. Blood cultures had not been obtained. Urine culture showed a mixed Gram-positive rafael. -white count was normal before discharge. Fever had defervesced. Pain was managed with oral medications. -CRP peaked at 24.8 and was 5.7 on discharge DS: Summary Hospital Course Hospital Course: Patient was admitted to the hospital with perforated sigmoid diverticulitis. He underwent open sigmoidectomy with primary anastomosis and diverting loop ileostomy. Patient did well postoperatively. He was tolerating regular diet and having ileostomy output. Patient underwent education of his ostomy cares. His midline incision had open areas that were cared for with wet to dries (superiorly and inferiorly). Patient was ambulating independently. Status at Discharge Functional status at discharge: independent ambulation Overall status at discharge: patient is progressing back to baseline Time Spent with Patient Time attestation: Total time spent providing and/or coordinating discharge services: Time spent: Greater than 30 minutes Exam Const: Vital Signs, click to edit/add: Vital Signs - 24 hr 05/14/23 12:34 05/14/23 15:00 05/14/23 15:00 Temperature 98.3 F 98.0 F Pulse Rate [Pulse Oximeter] 76 80 80 Respiratory Rate 14 14 14 Blood Pressure [Le ft Arm] 131/90 H Blood Pressure [Ri ght Arm] 144/91 H Pulse Oximetry 96 100 Oxygen Delivery Me thod Room Air Room Air 05/14/23 15:07 05/14/23 19:30 05/14/23 23:00 Temperature 3 F L 98.3 F Pulse Rate [Pulse Oximeter] 79 Respiratory Rate 14 16 Blood Pressure [Le ft Arm] Blood Pressure [Ri ght Arm] 149/88 H Pulse Oximetry 96 Oxygen Delivery Me thod Room Air 05/15/23 00:20 05/15/23 03:00 05/15/23 07:00 Temperature 97.9 F 98.1 F Pulse Rate [Pulse Oximeter] 78 75 68 Respiratory Rate 16 16 16 Blood Pressure [Le ft Arm] Blood Pressure [Ri ght Arm] 141/93 H 146/86 H Pulse Oximetry 96 96 Oxygen Delivery Me thod Room Air Room Air 05/15/23 07:00 Temperature 98.1 F Pulse Rate [Pulse Oximeter] 68 Respiratory Rate 16 Blood Pressure [Le ft Arm] Blood Pressure [Ri ght Arm] 138/92 H Pulse Oximetry 95 Oxygen Delivery Me thod Room Air Discharge Plan Discharge Disposition: Home, Self-Care Date of Admission: 05/09/23 13:36 Attending Provider on Discharge: Summer Núñez Consulting Providers: Paige Callahan Primary Care Provider: Provider,Not a Local Condition: Improved Anticipated Discharge Date/Time: 05/15/23 12:33 Discharge Medications: New loperamide [Imodium A-D] 2 mg tablet 2 mg PO QID PRN (Reason: loose stool) Qty: 30 0RF Rx Instructions: Take 1 tab up to 4 times daily (30 min prior to meals and at bedtime) as needed if stoma output is greater than 1,500 ml per day. oxycodone 5 mg capsule 5 mg PO BID PRN (Reason: pain) Qty: 10 0RF amoxicillin-pot clavulanate 875-125 mg tablet 1 tab PO BID Qty: 14 0RF Discharge Orders: Discharge Order (Routine); Ordered 05/15/23 Ordered By: Summer Núñez Patient Education: Loperamide (By mouth), Amoxicillin (By mouth) (Amoxicot, Amoxil, Amoxil Pediatric, Trimox), Oxycodone, Rapid Release (By mouth), Ileostomy Care (DC), Ileostomy Diet (DC), Acute Wounds (DC) Additional Instructions: Please call if you are experiencing severe pain, nausea, vomiting, difficulty urinating, fever or have no or persistently high stoma output. Avoid swimming in the pool or hot tubs. The ileostomy supplies will be ordered at the wound clinic next week after patient checks coverage with his insurance. Patient's will be doing wet to dry dressing changes daily with gauze and saline. Activity Level: No strenuous activity Discharge Diet: Regular and Other Diet Detail: Ileostomy diet instructions Drink 8 to 10 cups of fluid per 24 hours. Avoid caffeine and high sugary drinks as these will stimulate the small intestine and increase stoma output. Foods that you should incorporate with each meal to thicken stool include bananas, cheese, pasta, rice, potatoes, bread, peanut butter and tapioca. Having one or two of these foods as a bedtime snack will also help keep the stool thicker overnight. Only consume about 4 ounces of fluid with each meal in order not to wash food through small intestine. You are being discharged home with a prescription for Imodium (loperamide). This can also be purchased [id number]. Imodium is used when your stoma output is greater than 1500 mL per day and dietary changes as listed above do not help. It is necessary to help avoid dehydration. You can take it up to 4 times a day, 30 min prior to meals and at bedtime to decrease output overnight. You can take up to 2 pills at once. If your output is persistently high despite the above changes, please contact Dr. Callahan's office at [phone]. Follow Up Appointments: Paige Callahan MD [Staff Physician] - 05/19/23 11:00 am ( [facility] for follow-up. ) Provider,Not a Local [Primary Care Provider] - Ann Reyes CNP [Nurse Practitioner] - 05/21/23 1:00 pm ([facility] for ostomy care appointment. Check in at the Clinic and not at the Wound Care Center.) Forms: Convio Info Instructions
--- NOTE | 2023-05-15 12:11 | PC.NURSE ---
Discharge: patient alert and oriented. VSS. denies N/V/SOB. rates pain 06/12. Pre medicated with PRN Oxy prior to dressing change and demonstration, and ostomy appliance change. Patient discharged to home today accompanied by spouse at 1140. Extensive wound dressing education and demonstration done with patient and spouse. Patient's spouse verbalized understanding and comfort with dressing care and change. Ostomy appliance changed and patient and spouse verbalized understanding of how to do the change. Patient signed discharge instructions and belongings list. Supplies sent with patient.
== END 2023-05-15 11:40 | disposition home or self-care (01) | DRG 221 ==
LOC: ED 11:10 → MEDSURG 12:38
PROVIDERS: Family Medicine; Admitting Provider Surgery; Emergency Provider Family Medicine; Visit Provider Family Medicine
PROC: 0DTN0ZZ Resection of Sigmoid Colon, Open Approach (ICD-10-PCS; principal; 2023-05-10 02:30)
DX: K57.20 Diverticulitis of large intestine with perforation and abscess without bleeding (principal); K65.9 Peritonitis, unspecified; G89.18 Other acute postprocedural pain; A41.9 Sepsis, unspecified organism; F41.9 Anxiety disorder, unspecified; Z90.49 Acquired absence of other specified parts of digestive tract
CPT/HCPCS: 00790; 36415; 64488; 74177; 80048; 80053; 80076; 81001; 82150; 83605; 83735; 85025; 85027; 86140; 87086; 88304; 88307; 97116; 97161; 97530; 99140; 99284; 99285; A9270; C9290; J0330; J0665; J1100; J1170; J1630; J1650; J1885; J2250; J2270; J2405; J2543; J2704; J2710; J3010; J3490; J7030; J7120; Q9967

== ENCOUNTER 2023-06-30 09:29 | Outpatient (CLI) | payer BC, SELFPAY ==
--- NOTE | 2023-06-30 09:15 | FL_ITS ---
Patient: MINDY SHEIKH Facility:?[facility] Patient ID:?[id number] Site Patient ID:?[id number]. Site :?[id number] Study:?XRay-Abdomen/Pelvis Left GASTROGRAFIN ENEMA (DR KOVACS-06/30/2023 10:55:08 AM Ordering Physician:LOYDA Final Report: Technique: Single contrast water-soluble enema examination performed in routine fashion. Fluoroscopy time 58 seconds. Indication: History of perforated sigmoid diverticulitis status post sigmoidectomy and diversion ostomy. Evaluate for perforation prior to take down. Comparison: CT 05/09/2023 Findings: Postop changes of sigmoidectomy noted with intact anastomosis. No obstruction or extravasation. Expected scar tissue noted. A few diverticula are noted within the left colon and proximal sigmoid colon. Contrast extends into the stoma and terminal ileum. Impression: No extravasation of contrast. The anastomosis is intact. Dictated by Aki Dove MD @ 06/30/2023 12:25:55 PM Signed by:?Aki Dove MD @06/30/2023 12:25:55 PM (Electronic Signature)
== END 2023-06-30 09:30 | disposition home or self-care (01) ==
LOC: RAD 09:31
PROVIDERS: Visit Provider Surgery
DX: Z90.49 Acquired absence of other specified parts of digestive tract (principal); Z93.2 Ileostomy status
CPT/HCPCS: 74270

== ENCOUNTER 2023-07-02 11:46 | Outpatient (CLI) | payer BC, SELFPAY ==
--- NOTE | 2023-07-02 11:53 | W.ANESCHARGE ---
Anesthesia Charges Start Date/Time Anesthesia Start Date: 07/02/23 Anesthesia Start Time: 12:33 Stop Date/Time Anesthesia Stop Date: 07/02/23 Anesthesia Stop Time: 12:52
--- NOTE | 2023-07-02 13:02 | W.ANESCHARGE ---
Anesthesia Charges Start Date/Time Anesthesia Start Date: 07/02/23 Anesthesia Start Time: 12:33 Stop Date/Time Anesthesia Stop Date: 07/02/23 Anesthesia Stop Time: 12:52
== END 2023-07-02 11:47 | disposition home or self-care (01) ==
LOC: OP CLINIC 11:46
PROVIDERS: Visit Provider Internal Medicine
DX: Z12.11 Encounter for screening for malignant neoplasm of colon (principal); K57.30 Diverticulosis of large intestine without perforation or abscess without bleeding; Z98.0 Intestinal bypass and anastomosis status
CPT/HCPCS: 00811; 45378

== ENCOUNTER 2023-07-05 14:26 | Inpatient (IN) | payer BC, SELFPAY ==
[2023-07-05] VITALS (19 sets, daily range): BP systolic 128–153; BP diastolic 77–97; PULSE 58–99; RESP 14–18; TEMP 35.8–36.7; O2SAT 97–100
[2023-07-05] MEDS: LACTATED RINGERS 1000 ML 1,000 ML 100 ML IV (10:30)
[2023-07-05] MEDS: SODIUM CHLORIDE 0.9 % (FLUSH) 10 ML SYRINGE IVF (10:40)
[2023-07-05] MEDS: ERTAPENEM 1 GM inj IVPB (11:23)
--- NOTE | 2023-07-05 11:39 | P.NB_ITS ---
Nerve Block Nerve Block Time Seen by Provider: 11:10 Date Seen: 07/05/23 Type of block requested by surgeon for post-operative analgesia: TAP Side: bilateral Time out performed: Yes Verification of patient name: Yes Verification of date of : Yes Site marking: site marked Name of person performing procedure: Mario Continuous monitoring Was continuous monitoring of O2 sat, B/P, cardiac monitor technician, recorded every 15 minutes?: Yes Procedure Checklist: sterile prep, needles and gloves Ultrasound guided. Images saved: Yes Medications given in 5ml increments after negative aspiration: Marcaine %: 0.25 mL: 30 Needle gauge: 20 and Exparel mL: 10 Patient tolerated procedure well: Yes Additional comments: Needle noted between internal oblique and transversus abdominus. Local spread visualized Block Charges Block Charge (with Pro Fee): TAP Bilateral Use of Ultrasound Machine for Block: Yes- US Guidance/pain block
--- NOTE | 2023-07-05 11:39 | W.ANESCHARGE ---
Anesthesia Charges Start Date/Time Anesthesia Start Date: 07/05/23 Anesthesia Start Time: 11:03 Stop Date/Time Anesthesia Stop Date: 07/05/23 Anesthesia Stop Time: 13:37
--- NOTE | 2023-07-05 13:41 | W.ANESCHARGE ---
Anesthesia Charges Start Date/Time Anesthesia Start Date: 07/05/23 Anesthesia Start Time: 11:03 Stop Date/Time Anesthesia Stop Date: 07/05/23 Anesthesia Stop Time: 13:37
--- NOTE | 2023-07-05 13:43 | PM.GSPRC ---
Operative Note Date of procedure: 07/05/23 Pre-op diagnosis: Loop ileostomy, status post sigmoidectomy and diverting ostomy for perforated diverticulitis with peritonitis Post-op diagnosis: Same Type of Procedure: Open loop ileostomy takedown Indications: The patient is a 43-year-old male who 2 months prior presented with diverticulitis. He developed peritonitis and was taken to the OR emergently for laparotomy and sigmoidectomy. I was able to perform a primary anastomosis, however in the setting of infection I created a loop ileostomy. He has now undergone Gastrografin enema which showed the anastomosis was patent and intact as well as colonoscopy which showed no other findings and is presenting to [facility] for ileostomy takedown. Procedure Description: After discussing the risks and benefits of the procedure, the patient signed informed consent.? The operative site was marked and the patient was brought to the operating room and placed on the operating table in supine position.? Care was taken to pad the patient's pressure points.?? The patient was then intubated by anesthesia.? Sutures were placed through the ileostomy mucosa opening to prevent effluent discharge during the case.? The operative site was then prepped and draped in the usual sterile fashion.? A time-out was then performed. I began by incising the mucocutaneous junction using cautery. This was taken down to the subcutaneous fat. I then used a mosquito clamp to divide the adhesions between the bowel and the mesentery as well as subcutaneous fat. Once I freed the ostomy up somewhat, I then oversewed the opening using 3 0 Vicryl to prevent any further spillage or contamination of the wound. I then continued to dissect out the adhesions between bowel and the subcutaneous space and dividing this with cautery. A bleeding vessel in the mesentery was controlled with suture. I eventually reached the fascia and subsequently the peritoneum. I was able to free up the small bowel and colon into view. There were no intra-abdominal adhesions noted around the stoma. I was able to pull up enough of the small bowel to create an anastomosis. Therefore, I created a mesenteric window at the proximal and distal aspects of the small bowel. I did this on an area that appeared healthy and without any serosal injury from dissection. A blue load ARNIE stapler was fired across each end of the small bowel. A small bleeding vessel on the staple line proximally was oversewn with silk suture. I then divided the mesentery between clamps and ligated it. There was a fair amount of bleeding from the mesentery, however this was able to be controlled with a stick tie resulting in excellent hemostasis. I then pulled the 2 ends of the small bowel together. I placed a stay suture with 3-0 silk and created enterotomies in each and just past the staple line. Through this I advanced each end of a blue load ARNIE stapler. I position knees on the anti mesenteric side of the bowel and fired, creating a 60 cm anastomosis. I examined the staple line within the bowel there was no bleeding noted. I then closed the common enterotomy with 3-0 silk interrupted Lembert sutures. Once this was done the anastomosis appeared patent. The mesentery was again examined and there was no bleeding. The mesenteric window was very small and so no additional sutures were placed to prevent further bleeding. A crotch stitch was placed. I was then able to place the anastomosis back in the abdomen. I then examined the fascia. I attempted to create a retro rectus space, however the posterior fascia/peritoneum was very friable and tore easily. Therefore I created a space between the rectus muscle and the anterior rectus sheath. Once this was done I closed the posterior fascia and peritoneum using a running 0 Vicryl suture. I measured the space that I had made anterior to the rectus and obtained a piece of Phasix ST mesh which I plan to used to reinforce the fascia here. This was cut to size, measuring 6 x 5 cm. This was secured in place to the anterior fascia using 2 0 PDS. Once this was done, I closed the anterior rectus sheath over the Phasix patch. Once this was done, I used 2 0 Vicryl to close down the subcutaneous space where the stoma had been located. I then created a pursestring suture around the skin opening using 2-0 PDS. I was able to cinch down the stoma opening, making it smaller to promote faster wound healing. Wet to dry dressing was then placed in the wound. Betadine was placed on the skin to protect it where it was somewhat macerated/irritated from the stoma bag. A dressing was placed over top. ? The patient was then woken and transported to the recovery area in stable condition. ? The patient tolerated the procedure well. Implants: Phasix ST mesh placed in the rectus sheath to reinforce the closure. Anesthesia: GETA Surgeon: Paige Callahan MD Estimated blood loss (mL): 50 Specimen: Other Additional Specimen Information: Ileostomy Condition: stable Disposition: PACU
[2023-07-05] MEDS: HYDROmorphone 0.5 mg/0.5 ml inj IVP ×2 (14:41→18:01)
[2023-07-05] MEDS: LACTATED RINGERS 1000 ML 1,000 ML 125 ML IV ×2 (14:41→22:34)
--- NOTE | 2023-07-05 15:46 | W.PM.H&PU ---
History & Physical Update History & Physical Update H&P Reviewed and patient assessed: No changes noted
[2023-07-05] MEDS: HYDROCODONE-ACETAMIN 5-325 MG 1 TAB PO ×2 (18:01→22:33)
--- NOTE | 2023-07-05 19:11 | PC.NURSE ---
Shift 14-1530: Pt arrived to floor at 1408; Pt alert and oriented. Pt settled; VSS. Pt on RA. Pt had complaints of pain ranging from 5-7; see EMAR for intervention. Pt's spouse at bedside. Pt tolerating ice chips and water.
[2023-07-06 03:00] VITALS: BP 142/86; PULSE 67; RESP 18; TEMP 36.3; O2SAT 100
[2023-07-06] MEDS: HYDROCODONE-ACETAMIN 5-325 MG 1 TAB PO ×2 (03:34→08:20)
--- NOTE | 2023-07-06 05:28 | PC.NURSE ---
[id number] Pt doing very well, walking halls frequently throughout day and evening. pain controlled with oral pain medication. denies passing gas, bowel sounds hypoactive in all quadrants. dressing intact with drainage and circled no change during shift. ice applied to abdomen to help with pain and swelling. tolerating PO intake of clears, no nausea or vomiting, LR running at 125ml/hr. voiding without difficulty. afebrile.
[2023-07-06 06:24] LABS: Basophils Percent Auto 0.5 % (0.0-3.0); Eosinophils Absolute Auto 0.21 K/uL (0.00-0.50); Eosinophils Percent Auto 2.4 % (0.0-7.0); Hematocrit 37.3 % (37.0-53.0); Hemoglobin* 12.8 gm/dL (13.5-17.5); Immature Granulocytes Pct Auto 0.1 %; Lymphocytes Absolute Auto 1.83 K/uL (0.90-2.90); Lymphocytes Percent Auto 21.1 % (20-44); Mean Corpuscular HGB Conc 34 gm/dL (32-36); Mean Corpuscular Hemoglobin 28 pg (26-34); Mean Corpuscular Volume 81 fL (80-100); Monocytes Percent Auto 6.3 % (0.0-11.0); Neutrophils Absolute Auto 6.03 K/uL (1.7-7.0); Neutrophils Percent Auto 69.6 % (42.0-72.0); Platelet Count* 249 K/uL (140-440); RDW Coefficient of Variation % 13.6 % (11.5-15.5); Red Blood Count 4.58 m/uL (4.30-5.90); White Blood Count* 8.67 K/uL (4.50-11.00)
[2023-07-06 06:25] LABS: Basophils Absolute Auto 0.04 K/uL (0.00-0.30); Immature Granulocytes Abs Auto 0.01 K/uL (0.00-0.30)
[2023-07-06] MEDS: LACTATED RINGERS 1000 ML 1,000 ML 125 ML IV (06:28)
[2023-07-06 06:52] LABS: Slide Review Reflex No
[2023-07-06 06:54] LABS: Chloride* 107 mmol/L (96-114); Potassium* 3.9 mmol/L (3.6-5.1); Sodium* 137 mmol/L (135-149)
[2023-07-06 06:57] LABS: Anion Gap 8 mEq/L (7-15); Blood Urea Nitrogen* 9 mg/dL (5-24); Carbon Dioxide* 22 mmol/L (20-32); Creatinine* 0.6 mg/dL (0.5-1.5); Estimated Glomerular Filt Rate 121 ml/min; Glucose* 93 mg/dL (60-115)
[2023-07-06 06:58] LABS: Calcium* 8.9 mg/dL (8.4-10.6)
[2023-07-06 08:28] VITALS: BP 140/88; PULSE 81; RESP 16; TEMP 36.2; O2SAT 100
--- NOTE | 2023-07-06 09:56 | PM.GSPN ---
Subjective Subjective Date Seen: 07/06/23 Interval history: Vishnu has been doing well overnight. He has been walking. Pain is controlled. Tolerating clear liquids. Exam Narrative: Exam Narrative: General: No acute distress CV: Regular rate and rhythm Respiratory: Clear bilaterally Abdomen: Soft. Appropriately tender for the postop state. Incision is clean and dry. Dressing change today. Const: Vital Signs, click to edit/add: Vital Signs - 24 hr 07/05/23 10:40 07/05/23 13:32 07/05/23 13:40 Temperature 97.9 F 97.1 F L Pulse Rate 76 81 92 Pulse Rate [Pulse Oximeter] Respiratory Rate 16 16 16 Blood Pressure 134/78 142/97 H 144/93 H Blood Pressure [Le ft Arm] Blood Pressure [Ri ght Arm] Pulse Oximetry 100 98 98 Oxygen Delivery Mn thod Room Air Room Air Room Air 07/05/23 13:45 07/05/23 13:50 07/05/23 13:55 Temperature Pulse Rate 87 74 69 Pulse Rate [Pulse Oximeter] Respiratory Rate 14 16 16 Blood Pressure 139/92 H 128/89 136/90 H Blood Pressure [Le ft Arm] Blood Pressure [Ri ght Arm] Pulse Oximetry 99 99 97 Oxygen Delivery Mn thod Room Air Room Air Room Air 07/05/23 14:01 07/05/23 14:08 07/05/23 14:15 Temperature 97.2 F L 96.5 F L 96.5 F L Pulse Rate 75 69 72 Pulse Rate [Pulse Oximeter] 72 Respiratory Rate 16 16 16 Blood Pressure 139/92 H 147/95 H 139/96 H Blood Pressure [Le ft Arm] Blood Pressure [Ri ght Arm] 139/96 H Pulse Oximetry 99 99 100 Oxygen Delivery Mn thod Room Air Room Air Room Air 07/05/23 14:30 07/05/23 14:45 07/05/23 15:00 Temperature 96.6 F L 96.6 F L 96.6 F L Pulse Rate 62 63 58 L Pulse Rate [Pulse Oximeter] 62 63 58 L Respiratory Rate 18 16 16 Blood Pressure 134/89 140/87 H 132/84 Blood Pressure [Le ft Arm] Blood Pressure [Ri ght Arm] 134/89 140/87 H 132/84 Pulse Oximetry 100 99 100 Oxygen Delivery Mn thod Room Air Room Air Room Air 07/05/23 15:30 07/05/23 16:00 07/05/23 16:30 Temperature 97.1 F L Pulse Rate 80 82 80 Pulse Rate [Pulse Oximeter] Respiratory Rate 18 18 18 Blood Pressure 131/82 135/86 139/85 Blood Pressure [Le ft Arm] Blood Pressure [Ri ght Arm] Pulse Oximetry 100 99 100 Oxygen Delivery Me thod Room Air Room Air Room Air 07/05/23 17:30 07/05/23 18:30 07/05/23 19:30 Temperature Pulse Rate 82 99 87 Pulse Rate [Pulse Oximeter] Respiratory Rate 18 18 18 Blood Pressure 136/82 139/77 153/90 H Blood Pressure [Le ft Arm] Blood Pressure [Ri ght Arm] Pulse Oximetry 100 98 98 Oxygen Delivery Me thod Room Air Room Air Room Air 07/05/23 22:56 07/06/23 03:00 07/06/23 08:28 Temperature 98.0 F 97.3 F L 97.1 F L Pulse Rate Pulse Rate [Pulse Oximeter] 78 67 81 Respiratory Rate 18 18 16 Blood Pressure Blood Pressure [Le ft Arm] 142/86 H Blood Pressure [Ri ght Arm] 137/91 H 140/88 H Pulse Oximetry 100 100 100 Oxygen Delivery Me thod Room Air Room Air Room Air Labs/Imaging Labs Labs: Hemoglobin is 12.8 from 14 preop Progress Note:A&P Assessment and plan (1) S/P small bowel resection: Status: Acute (2) Open wound: Status: Acute Plan Vishnu is a 43-year-old male postop day 1 status post ileostomy takedown. -awaiting return of bowel function. He will go slow with diet, however will dance him to full liquids today. -continue maintenance fluids until taking sufficient p.o. will decrease rate today though slightly as urine output is adequate. -patient is ambulating. Continue SCDs and ambulation for DVT prophylaxis -daily wet to dry dressing changes to abdominal wound. -will add ketorolac for pain control since hemoglobin is acceptable -encourage IS.
[2023-07-06] MEDS: KETOROLAC 15 MG/ML inj IVP ×2 (12:44→21:53)
[2023-07-06 13:19] VITALS: BP 125/80; PULSE 86; RESP 16; TEMP 36.6; O2SAT 98
[2023-07-06 15:00] VITALS: BP 123/83; PULSE 92; RESP 16; RESP 18; TEMP 36.6; O2SAT 100
[2023-07-06] MEDS: LACTATED RINGERS 1000 ML 1,000 ML 100 ML IV (15:15)
[2023-07-06] MEDS: ACETAMINOPHEN 325 MG TABLET 650 MG PO (17:18)
[2023-07-06 19:00] VITALS: BP 117/76; PULSE 75; RESP 18; TEMP 36.4; O2SAT 100
--- NOTE | 2023-07-06 22:54 | PC.NURSE ---
End of Shift: Patient pleasant and cooperative. Afebrile. Up walking in hallway frequently this shift. Rating pain in abdomen 1-4/10 and PRN Toradol given x1. PRN Tylenol x1 for headache. Dressing to abdomen C/D/I. Patient states passing flatus and 3 loose BMs this shift. Tolerating full liquids with no nausea.
[2023-07-07 00:20] VITALS: BP 120/69; PULSE 84; RESP 14; RESP 18; TEMP 36.8; O2SAT 98
[2023-07-07] MEDS: LACTATED RINGERS 1000 ML 1,000 ML 100 ML IV ×2 (00:31→10:33)
[2023-07-07 04:00] VITALS: BP 122/63; PULSE 68; RESP 16; TEMP 36.5; O2SAT 96
[2023-07-07 06:33] LABS: Basophils Absolute Auto 0.02 K/uL (0.00-0.30); Basophils Percent Auto 0.3 % (0.0-3.0); Eosinophils Absolute Auto 0.46 K/uL (0.00-0.50); Hematocrit 33.1 % (37.0-53.0); Hemoglobin* 11.2 gm/dL (13.5-17.5); Lymphocytes Absolute Auto 1.48 K/uL (0.90-2.90); Lymphocytes Percent Auto 22.5 % (20-44); Mean Corpuscular HGB Conc 34 gm/dL (32-36); Mean Corpuscular Hemoglobin 28 pg (26-34); Mean Corpuscular Volume 83 fL (80-100); Monocytes Percent Auto 7.3 % (0.0-11.0); Neutrophils Absolute Auto 4.13 K/uL (1.7-7.0); Neutrophils Percent Auto 62.9 % (42.0-72.0); Platelet Count* 236 K/uL (140-440); RDW Coefficient of Variation % 13.9 % (11.5-15.5); Red Blood Count 3.98 m/uL (4.30-5.90); White Blood Count* 6.57 K/uL (4.50-11.00)
[2023-07-07 07:32] LABS: Slide Review Reflex No
[2023-07-07 08:43] VITALS: BP 121/83; PULSE 90; RESP 16; TEMP 36.6; O2SAT 99
--- NOTE | 2023-07-07 10:08 | NUTR.NU ---
PASCUALN with diet education related to ileostomy takedown. Patient is known to RDN from previous hospital admissions and visit in outpatient clinic. Patient admitted with perforated diverticulitis with resection with loop ileostomy placement on 05/10/2023. RDN visited with patient in outpatient clinic for ileostomy diet on 05/21/2023. Patient is currently status post op day 2 from ileostomy takedown. No current height and weight to assess, however per weight records weight has been stable recently. RDN visited with patient whom reports feeling good. He is eating a solid breakfast this morning during visit (pancakes). RDN provided diet education related to recent ileostomy takedown. Patient was provided diet education on a low fiber diet. Discussed foods to include and foods to avoid until MD recommends advancing to high fiber diet. Education also provided on gradually increasing fiber and following a high fiber diet (25-35 grams/day) long-term. Recommended to patient to follow high-fiber diet life-long. Verbal and written information as well as sample menus provided on both diets from [facility]. Patient verbalized understanding. RDN's contact information was provided and patient was encouraged to contact RDN with questions.
--- NOTE | 2023-07-07 11:44 | PM.DS1 ---
DS: Providers Provider Date Seen: 07/07/23 Date of admission: 07/05/23 14:26 Primary care physician: Not a Local Provider Admitting Clinician: Paige Callahan MD Attending Physician on discharge: Paige Callahan MD DS: Diagnosis Discharge Diagnosis (1) S/P small bowel resection: Status: Acute (2) Open wound: Status: Acute DS: Summary Hospital Course Hospital Course: The patient is a 43-year-old male who underwent ileostomy takedown on 07/05/2023. Postoperatively he did well. He had good pain control and return of bowel function on postop day 2. He was tolerating a diet without nausea. He was deemed safe for discharge. Time Spent with Patient Time attestation: Total time spent providing and/or coordinating discharge services: Exam Const: Vital Signs, click to edit/add: Vital Signs - 24 hr 07/06/23 13:19 07/06/23 15:00 07/06/23 15:00 Temperature 97.9 F 97.9 F Pulse Rate [Pulse Oximeter] 86 92 92 Respiratory Rate 16 16 18 Blood Pressure [Le ft Arm] Blood Pressure [Ri ght Arm] 125/80 123/83 Pulse Oximetry 98 100 Oxygen Delivery Me thod Room Air Room Air 07/06/23 19:00 07/07/23 00:20 07/07/23 00:20 Temperature 97.6 F 98.3 F Pulse Rate [Pulse Oximeter] 75 84 Respiratory Rate 18 18 14 Blood Pressure [Le ft Arm] 120/69 Blood Pressure [Ri ght Arm] 117/76 Pulse Oximetry 100 98 Oxygen Delivery Me thod Room Air Room Air 07/07/23 04:00 07/07/23 08:43 Temperature 97.7 F 97.9 F Pulse Rate [Pulse Oximeter] 68 90 Respiratory Rate 16 16 Blood Pressure [Le ft Arm] 122/63 Blood Pressure [Ri ght Arm] 121/83 Pulse Oximetry 96 99 Oxygen Delivery Me thod Room Air Room Air DS: Data Data Completed and Pending Completed studies during hospitalization: Procedures Bypass Ileum to Cutaneous, Open Approach (05/09/23) Inspection of Lower Intestinal Tract, Via Natural or Artificial Opening Endoscopic (05/09/23) Resection of Sigmoid Colon, Open Approach (05/09/23) Labs on day of discharge: Labs from last 24 hours 07/07/23 05:57 WBC 6.57 RBC 3.98 L Hgb 11.2 L Hct 33.1 L MCV 83 MCH 28 MCHC 34 RDW Coeff of Jennifer 13.9 Plt Count 236 Neut % (Auto) 62.9 Lymph % (Auto) 22.5 [place] % (Auto) 7.3 Eos % (Auto) 7.0 Baso % (Auto) 0.3 Neut # (Auto) 4.13 Lymph # (Auto) 1.48 [place] # (Auto) 0.50 Eos # (Auto) 0.46 Baso # (Auto) 0.02 Abs Immat Gran (auto) 0.00 Imm/Tot Granulo (auto) 0.0 Discharge Plan Discharge Disposition: Home, Self-Care Date of Admission: 07/05/23 14:26 Attending Provider on Discharge: Paige Callahan Primary Care Provider: Provider,Not a Local Condition: Stable Anticipated Discharge Date/Time: 07/07/23 11:45 Discharge Medications: New hydrocodone-acetaminophen 5-325 mg Tablet 1 - 2 tab PO Q6H PRN (Reason: Pain) Qty: 15 0RF ketorolac 10 mg tablet 10 mg PO TID PRN (Reason: pain) 5 Days Qty: 9 0RF Discontinued loperamide [Imodium A-D] 2 mg tablet 2 mg PO QID PRN (Reason: loose stool) Qty: 30 0RF Rx Instructions: Take 1 tab up to 4 times daily (30 min prior to meals and at bedtime) as needed if stoma output is greater than 1,500 ml per day. Discharge Orders: Discharge Order (Routine); Ordered 07/07/23 Ordered By: Paige Callahan Patient Education: Surgical Site Infections (DC) Additional Instructions: Wound care: Change dressing daily with saline-moistened gauze. OK to shower - either remove dressing and shower before replacing or cover dressing with saran wrap to keep dry. Suture is absorbable - Dr. Callahan will remove at your post-operative visit; however if it falls out sooner, don't be alarmed Avoid bathing, soaking or swimming until the wound is healed Apply ice to the area as needed for swelling. It is also OK to use a heating pad if this provides more comfort to you. Pain control: You were prescribed a pain medication called Ketorolac. This is a high-dose ibuprofen - do not take additional ibuprofen while taking this medication. You were prescribed an opioid pain medication. Take this for severe pain. This medication contains acetaminophen (Tylenol). If you are taking your prescribed pain pills 4 times daily, do not take additional acetaminophen. As your pain improves, you can try taking acetaminophen instead of the prescribed pain pill. Take an oalb-elr-lhlityk stool softener while you are taking prescribed pain medications to help alleviate constipation. I recommend Senna and/or Colace. Take as directed on package. If you have not had a bowel movement in 3 days, try taking Miralax as directed on the package. All of these are available over the counter. Follow-up Follow up with Dr. Calalhan in 2-3 weeks Please call if you are experiencing severe pain, nausea, vomiting, difficulty urinating, fever or have not had bowel movement in 4 days after surgery. Activity Level: Activity as Tolerated Discharge Diet: Regular Follow Up Appointments: Paige Callahan MD [Staff Physician] - 07/27/23 10:15 am ([facility] for follow-up.) Provider,Not a Local [Primary Care Provider] - Forms: [employer] Info Instructions Discharge Comments: Follow up appointment is 07/20 at [address] [place] [address] Callahan
--- NOTE | 2023-07-07 19:19 | ED.NURSE ---
pt called in regarding bloody stools after discharging from med surg at 12, Dr Avinash Núñez called and given pt phone number, Dr Núñez stated she will call the patient tonight to advise him on what to do.
== END 2023-07-07 12:40 | disposition home or self-care (01) | DRG 223 ==
LOC: OR 15:02 → MEDSURG 07-07 10:36
PROVIDERS: Admitting Provider Surgery; Visit Provider Surgery
PROC: 0DBE0ZZ Excision of Large Intestine, Open Approach (ICD-10-PCS; CPT 44620; principal; 2023-07-05 12:00)
DX: Z43.2 Encounter for attention to ileostomy (principal); F41.9 Anxiety disorder, unspecified; Z90.49 Acquired absence of other specified parts of digestive tract; G89.18 Other acute postprocedural pain
CPT/HCPCS: 00790; 36415; 64488; 76942; 80048; 85025; 88304; A9270; C1781; C9290; J0665; J1100; J1170; J1200; J1335; J1630; J1885; J2250; J2704; J3010; J3475; J3490; J7120